=== PATIENT | female | born 1965 | race American Indian/Alaskan Native ===

== ENCOUNTER 2016-11-21 08:58 | Emergency (ER) | payer SELFPAY ==
[2016-11-21 10:05] LABS: Basophils % (Auto) 0.8 % (0.0-1.8); Hematocrit 36.4 % (30.3-42.9); Mean Corpuscular HGB Conc 36 % (30-34); Mean Corpuscular Hemoglobin 29 pg (28-32); Mean Corpuscular Volume 80 fl (79-97); Platelet Count 227 K/mm3 (140-440); Red Blood Count 4.55 M/mm3 (3.65-5.03); Red Cell Distribution Width 13.1 % (13.2-15.2); White Blood Count 4.3 K/mm3 (4.5-11.0)
[2016-11-21 10:14] LABS: Anion Gap 16 mmol/L; Blood Urea Nitrogen 12 mg/dL (7-17); Calcium 8.7 mg/dL (8.4-10.2); Carbon Dioxide 29 mmol/L (22-30); Chloride 95.6 mmol/L (98-107); Glucose 221 mg/dL (65-100); Lipase 17 units/L (13-60); Potassium 3.2 mmol/L (3.6-5.0); Sodium 137 mmol/L (137-145)
[2016-11-21] MEDS ORDERED: NACL 0.9% 1000 ML 1,000 ML IV ONE (16:42)
[2016-11-21] MEDS ORDERED: ZOFRAN IV ONE (16:42)
[2016-11-21] MEDS ORDERED: K-DUR PO ONE (16:42)
[2016-11-21] MEDS ORDERED: REGLAN IV ONE (16:42)
[2016-11-21] MEDS ORDERED: KCL 10MEQ/100ML 10 MEQ/100 ML BAG IV ONE (16:42)
[2016-11-21] MEDS ORDERED: BENADRYL IV ONE (16:42)
[2016-11-21] MEDS ORDERED: DILAUDID IV ONE (16:44)
--- NOTE | 2016-11-21 17:04 | Emergency Department Report ---
ED N/V/D HPI - General Chief complaint: Nausea/Vomiting/Diarrhea Stated complaint: CHEST PAIN/LOOSE STOOL/VOMITING Time Seen by Provider: 11/21/16 16:21 Source: patient Mode of arrival: Ambulatory Limitations: No Limitations - History of Present Illness Initial comments: 51-year-old female with a past medical history of insulin dependent diabetes, gastroparesis, GERD, and previous cholecystectomy presents to the hospital complaints of abdominal pain, nausea, vomiting, and diarrhea. Patient states she has chronic diarrhea and intermittent vomiting approximately one episode every one to 2 days. For the past 4 days patient has been vomiting 6-7 times a day and has continued diarrhea. She complains of intermittent cramping epigastric abdominal pain without aggravating or alleviating factors. Patient has had multiple similar bouts in the past secondary to gastroparesis and this feels similar. She just took the last dose of her recently prescribed medications from her September ER visit and reports that she no longer has any more hydrocodone or Reglan. She also has a history of chronic hypokalemia and reports she is chest discomfort and cramps when her potassium is low. - Related Data Home Medications Medication Instructions Recorded Confirmed Last Taken Insulin NPH/Regular [NovoLIN 70/30] 15 unit SUB-Q BID 10/14/15 03/26/16 19:30 Previous Rx's Medication Instructions Recorded Last Taken Type HYDROcodone/APAP 7.5-325 [[place] 1 each PO Q8HR PRN #10 tablet 05/08/16 Unknown Rx 7.5-325 mg TAB] Ciprofloxacin HCl [Ciprofloxacin 500 mg PO BID #20 tablet 06/07/16 Unknown Rx TAB] traMADol [Ultram 50 MG tab] 50 mg PO Q4HR PRN #20 tablet 06/07/16 Unknown Rx HYDROcodone/APAP 5-325 [[place] 1 each PO Q6HR PRN #20 tablet 11/21/16 Unknown Rx 5-325 mg TAB] Metoclopramide [Reglan TAB] 10 mg PO ACHS PRN #30 tablet 11/21/16 Unknown Rx Omeprazole Magnesium [PriLOSEC Otc] 20 mg PO QDAY #30 tablet. 11/21/16 Unknown Rx Ondansetron [Zofran Odt] 4 mg PO Q8HR PRN #20 tab.rapdis 11/21/16 Unknown Rx Potassium Chloride [K-Dur] 20 meq PO BID #10 tab 11/21/16 Unknown Rx Allergies Allergy/AdvReac Type Severity Reaction Status Date / Time aspirin AdvReac Vomiting Verified 10/14/15 13:42 ED Review of Systems ROS: Stated complaint: CHEST PAIN/LOOSE STOOL/VOMITING Other details as noted in HPI Comment: All other systems reviewed and negative Other: Constitutional: No fevers chills Eyes: No eye pain visual changes ENT: No ear pain or throat pain Neck: Denies pain Respiratory: Denies cough wheezing shortness of breath Cardiovascular: Denies palpitations, syncope GI: As per HPI : Denies dysuria, urinary frequency, or urgency Musculoskeletal: Denies back pain Skin: Denies rash, lesions, erythema Neurologic: Denies headache, numbness, weakness Psychiatric: Denies suicidal ideation, hallucinations ED Past Medical Hx - Past Medical History Previous Medical History?: Yes Hx Hypertension: (pt denies) Hx Heart Attack/AMI: No Hx Diabetes: Yes Hx GERD: Yes Hx Kidney Stones: No Additional medical history: NEUROPATHY, fibroids. CATARACT - Surgical History Past Surgical History?: Yes Hx Cholecystectomy: Yes Additional Surgical History: left fallopian tube removed at age 19 - Social History Smoking Status: Former Smoker Substance Use Type: Prescribed - Medications Home Medications: Home Medications Medication Instructions Recorded Confirmed Last Taken Type Insulin NPH/Regular [NovoLIN 70/30] 15 unit SUB-Q BID 10/14/15 03/26/16 19:30 History HYDROcodone/APAP 7.5-325 [[place] 1 each PO Q8HR PRN #10 tablet 05/08/16 Unknown Rx 7.5-325 mg TAB] Ciprofloxacin HCl [Ciprofloxacin 500 mg PO BID #20 tablet 06/07/16 Unknown Rx TAB] traMADol [Ultram 50 MG tab] 50 mg PO Q4HR PRN #20 tablet 06/07/16 Unknown Rx HYDROcodone/APAP 5-325 [[place] 1 each PO Q6HR PRN #20 tablet 11/21/16 Unknown Rx 5-325 mg TAB] Metoclopramide [Reglan TAB] 10 mg PO ACHS PRN #30 tablet 11/21/16 Unknown Rx Omeprazole Magnesium [PriLOSEC Otc] 20 mg PO QDAY #30 tablet 11/21/16 Unknown Rx Ondansetron [Zofran Odt] 4 mg PO Q8HR PRN #20 tab.rapdis 11/21/16 Unknown Rx Potassium Chloride [K-Dur] 20 meq PO BID #10 tab 11/21/16 Unknown Rx ED Physical Exam - General Limitations: No Limitations - Other Other exam information: General: No limitations, patient is alert in no acute distress Head exam: Atraumatic, normocephalic Eyes exam: Normal appearance, nonicteric sclerae ENT: Moist mucous membrane, normal oropharynx Neck exam: Normal inspection, full range of motion, no meningismus nontender Respiratory exam: Clear to auscultation bilateral, no wheezes, rales, crackles Cardiovascular: Normal rate and rhythm, normal heart sounds Abdomen: Soft, nondistended, mild epigastric tenderness, with normal bowel sounds, no rebound, or guarding Extremity: Full range of motion normal inspection no deformity Back: Normal Inspection, full range of motion, no tenderness Neurologic: Alert, oriented x3, cranial nerves intact, no motor or sensory deficit Psychiatric: normal affect, normal mood Skin: Warm, dry, intact ED Course Vital Signs 11/21/16 11/21/16 11/21/16 09:18 16:35 16:36 Temperature 98.9 F Pulse Rate 84 81 Respiratory 18 16 16 Rate Blood Pressure 101/54 Blood Pressure 110/72 [Right] O2 Sat by Pulse 100 100 100 Oximetry - Reevaluation(s) Reevaluation #1: 11/21/16 19:17 pt feels better, tolerating po ED Medical Decision Making - Lab Data Result diagrams: 11/21/16 09:40 11/21/16 09:40 Lab Results 11/21/16 11/21/16 11/21/16 Range/Units 09:40 09:40 13:07 WBC 4.3 L (4.5-11.0) K/mm3 RBC 4.55 (3.65-5.03) M/mm3 Hgb 13.0 (10.1-14.3) gm/dl Hct 36.4 (30.3-42.9) % MCV 80 (79-97) fl MCH 29 (28-32) pg MCHC 36 H (30-34) % RDW 13.1 L (13.2-15.2) % Plt Count 227 (140-440) K/mm3 Lymph % (Auto) 43.0 H (13.4-35.0) % [place] % (Auto) 7.5 H (0.0-7.3) % Eos % (Auto) 1.0 (0.0-4.3) % Baso % (Auto) 0.8 (0.0-1.8) % Lymph # 1.8 (1.2-5.4) K/mm3 [place] # 0.3 (0.0-0.8) K/mm3 Eos # 0.0 (0.0-0.4) K/mm3 Baso # 0.0 (0.0-0.1) K/mm3 Seg Neutrophils % 47.7 (40.0-70.0) % Seg Neutrophils # 2.0 (1.8-7.7) K/mm3 Sodium 137 (137-145) mmol/L Potassium 3.2 L (3.6-5.0) mmol/L Chloride 95.6 L (98-107) mmol/L Carbon Dioxide 29 (22-30) mmol/L Anion Gap 16 mmol/L BUN 12 (7-17) mg/dL Creatinine 0.6 L (0.7-1.2) mg/dL Estimated GFR > 60 ml/min BUN/Creatinine Ratio 20.00 % Glucose 221 H (65-100) mg/dL POC Glucose (70-105) Calcium 8.7 (8.4-10.2) mg/dL Magnesium (1.7-2.3) mg/dL Total Bilirubin (0.1-1.2) mg/dL Direct Bilirubin (0-0.2) mg/dL Indirect Bilirubin mg/dL AST (5-40) units/L ALT (7-56) units/L Alkaline Phosphatase (35-129) units/L Troponin T < 0.010 < 0.010 (0.00-0.029) ng/mL Total Protein (6.3-8.2) g/dL Albumin (3.9-5) g/dL Albumin/Globulin Ratio % Lipase 17 (13-60) units/L 11/21/16 11/21/16 11/21/16 Range/Units 17:00 17:00 17:45 WBC (4.5-11.0) K/mm3 RBC (3.65-5.03) M/mm3 Hgb (10.1-14.3) gm/dl Hct (30.3-42.9) % MCV (79-97) fl MCH (28-32) pg MCHC (30-34) % RDW (13.2-15.2) % Plt Count (140-440) K/mm3 Lymph % (Auto) (13.4-35.0) % [place] % (Auto) (0.0-7.3) % Eos % (Auto) (0.0-4.3) % Baso % (Auto) (0.0-1.8) % Lymph # (1.2-5.4) K/mm3 [place] # (0.0-0.8) K/mm3 Eos # (0.0-0.4) K/mm3 Baso # (0.0-0.1) K/mm3 Seg Neutrophils % (40.0-70.0) % Seg Neutrophils # (1.8-7.7) K/mm3 Sodium (137-145) mmol/L Potassium (3.6-5.0) mmol/L Chloride (98-107) mmol/L Carbon Dioxide (22-30) mmol/L Anion Gap mmol/L BUN (7-17) mg/dL Creatinine (0.7-1.2) mg/dL Estimated GFR ml/min BUN/Creatinine Ratio % Glucose (65-100) mg/dL POC Glucose 175 H (70-105) Calcium (8.4-10.2) mg/dL Magnesium 1.9 (1.7-2.3) mg/dL Total Bilirubin 0.4 (0.1-1.2) mg/dL Direct Bilirubin < 0.2 (0-0.2) mg/dL Indirect Bilirubin 0.2 mg/dL AST 20 (5-40) units/L ALT 21 (7-56) units/L Alkaline Phosphatase 62 (35-129) units/L Troponin T < 0.010 (0.00-0.029) ng/mL Total Protein 6.8 (6.3-8.2) g/dL Albumin 4.0 (3.9-5) g/dL Albumin/Globulin Ratio 1.4 % Lipase (13-60) units/L - Medical Decision Making Medication ordered. Benadryl, Reglan, Dilaudid, Zofran, normal saline, by mouth and IV potassium. Sx improved ED treatment. Barrett be prescribed for discharge for gastroparesis symptoms as well as potassium supplementation. - Differential Diagnosis gastroparesis, GERD, gastroenteritis, hypokalemia, dehydration, UTI, DKA Critical Care Time: No Critical care attestation.: If time is entered above; I have spent that time in minutes in the direct care of this critically ill patient, excluding procedure time. ED Disposition Clinical Impression: Diabetic gastroparesis, GERD (gastroesophageal reflux disease), Hypokalemia Disposition: DISCHARGED TO HOME OR SELFCARE Is pt being admited?: No Does the pt Need Aspirin: No Condition: Stable Instructions: Diabetes Mellitus Type 2 in Adults (ED), Acute Nausea and Vomiting (ED) Additional Instructions: Take the medication as prescribed. Follow-up with the doctor or clinic provided. Return if symptoms worsen. Prescriptions: HYDROcodone/APAP 5-325 [[place] 5-325 mg TAB] 1 each PO Q6HR PRN #20 tablet PRN Reason: Pain Metoclopramide [Reglan TAB] 10 mg PO ACHS PRN #30 tablet PRN Reason: nausea or vomiting Omeprazole Magnesium [PriLOSEC Otc] 20 mg PO QDAY #30 tablet. Ondansetron [Zofran Odt] 4 mg PO Q8HR PRN #20 tab.rapdis PRN Reason: Nausea And Vomiting Potassium Chloride [K-Dur] 20 meq PO BID #10 tab Referrals: PRIMARY CARE, [Primary Care Provider] - 3-5 Days IGNACIA ESTRADA MD [Staff Physician] - 3-5 Days [facility] [Provider Group] - 3-5 Days JACK RILEY MD [Staff Physician] - 3-5 Days Time of Disposition: 19:22
[2016-11-21 17:35] LABS: Alanine Aminotransferase 21 units/L (7-56); Albumin/Globulin Ratio 1.4 %; Alkaline Phosphatase 62 units/L (35-129); Bilirubin,Total 0.4 mg/dL (0.1-1.2); Magnesium 1.9 mg/dL (1.7-2.3); Total Protein 6.8 g/dL (6.3-8.2)
[2016-11-21 17:46] LABS: Bilirubin,Direct < 0.2 mg/dL (0-0.2); Bilirubin,Indirect 0.2 mg/dL
[2016-11-21 22:00] VITALS: BP 135/78
== END 2016-11-21 21:50 | disposition home or self-care (01) ==
LOC: ED 08:58
DX: E11.43 Type 2 diabetes mellitus with diabetic autonomic (poly)neuropathy (principal); K31.84 Gastroparesis; K21.9 Gastro-esophageal reflux disease without esophagitis; E87.6 Hypokalemia; G62.9 Polyneuropathy, unspecified; Z79.4 Long term (current) use of insulin; Z87.891 Personal history of nicotine dependence; Z90.49 Acquired absence of other specified parts of digestive tract; Z88.5 Allergy status to narcotic agent
CPT/HCPCS: 36415; 80048; 80074; 82962; 83690; 83735; 84484; 85025; 93005; 93010; 96365; 96375; 99284; J1170; J1200; J2405; J2765; J3480; J7030; J1815

== ENCOUNTER 2016-12-26 15:09 | Emergency (ER) | payer SELFPAY ==
[2016-12-26 16:28] LABS: Basophils % (Auto) 0.7 % (0.0-1.8); Eosinophils % (Auto) 1.1 % (0.0-4.3); Hematocrit 34.1 % (30.3-42.9); Hemoglobin 12.3 gm/dl (10.1-14.3); Mean Corpuscular HGB Conc 36 % (30-34); Mean Corpuscular Hemoglobin 29 pg (28-32); Mean Corpuscular Volume 79 fl (79-97); Platelet Count 237 K/mm3 (140-440); Red Cell Distribution Width 13.1 % (13.2-15.2); White Blood Count 3.9 K/mm3 (4.5-11.0)
[2016-12-26 16:44] LABS: Anion Gap 15 mmol/L; BUN/Creatinine Ratio 16.66; Blood Urea Nitrogen 10 mg/dL (7-17); Calcium 8.5 mg/dL (8.4-10.2); Carbon Dioxide 33 mmol/L (22-30); Chloride 93.7 mmol/L (98-107); Glucose 216 mg/dL (65-100); Sodium 139 mmol/L (137-145)
[2016-12-26 16:57] LABS: Potassium 2.6 mmol/L (3.6-5.0)
[2016-12-26] MEDS ORDERED: ZOFRAN IV ONE (20:52)
[2016-12-26] MEDS ORDERED: DILAUDID IV ONE (20:52)
[2016-12-26] MEDS ORDERED: NACL 0.9% 1000 ML 1,000 ML IV ONE (20:54)
--- NOTE | 2016-12-26 20:54 | Emergency Department Report ---
ED General Adult HPI - General Chief complaint: Back Pain/Injury Stated complaint: BACK PAIN/UPPER/LOWER SIDE PAIN/VOMITING Time Seen by Provider: 12/26/16 20:30 Source: patient, RN notes reviewed, old records reviewed Mode of arrival: Ambulatory Limitations: No Limitations - History of Present Illness Initial comments: This is a 51-year-old female. She is previously unknown to me. She gets her medical care at this facility and a [facility]. Past medical history includes hypertension, diabetes, GERD/reflux, neuropathy, fibroids and hypertension. Patient had a history of cholecystectomy as Hospital distant past. She also has a history of gastroparesis. The patient presents to the ER with abdominal pain that radiates to the back. It is epigastric, right upper quadrant radiates to the back. It is sharp and achy. Associated with a few episodes of nausea and vomiting, nonbloody and nonbilious. The patient denies lower abdominal pain. She denies chest pain and shortness of breath. There is no leg pain. There is no leg swelling. There is GREATER than 4 hours. No recent hospital admissions. No hematemesis. No bright red blood per rectum. Of note, reviewed patient's old medical records demonstrates that she is presented multiple times in the past for similar symptoms. -: Gradual Location: abdomen Radiation: back Severity scale (0 -10): 10 Quality: aching, sharp Improves with: medication, rest Worsens with: movement Associated Symptoms: loss of appetite, malaise. denies: confusion, chest pain, cough - Related Data Home Medications Medication Instructions Recorded Confirmed Last Taken Insulin NPH/Regular [NovoLIN 70/30] 15 unit SUB-Q BID 10/14/15 12/26/16 19:30 Previous Rx's Medication Instructions Recorded Last Taken Type Dicyclomine [Bentyl] 10 mg PO QID PRN #20 capsule 12/26/16 Unknown Rx Famotidine [Pepcid] 20 mg PO QDAY #30 tablet 12/26/16 Unknown Rx Metoclopramide [Reglan] 10 mg PO QID PRN #30 tablet 12/26/16 Unknown Rx Potassium Chloride [Klor-Con] 20 meq PO BID #20 packet 12/26/16 Unknown Rx Allergies Allergy/AdvReac Type Severity Reaction Status Date / Time aspirin AdvReac Vomiting Verified 10/14/15 13:42 ED Review of Systems ROS: Stated complaint: BACK PAIN/UPPER/LOWER SIDE PAIN/VOMITING Other details as noted in HPI Constitutional: malaise. denies: fever Eyes: denies: vision change ENT: denies: epistaxis Respiratory: denies: cough Cardiovascular: denies: chest pain Genitourinary: as per HPI. denies: dysuria Musculoskeletal: myalgia Skin: denies: lesions Neurological: weakness Psychiatric: anxiety ED Past Medical Hx - Past Medical History Hx Hypertension: (pt denies) Hx Heart Attack/AMI: No Hx Diabetes: Yes Hx GERD: Yes Hx Kidney Stones: No Additional medical history: NEUROPATHY, fibroids. CATARACT - Surgical History Hx Cholecystectomy: Yes Additional Surgical History: left fallopian tube removed at age 19 - Social History Smoking Status: Former Smoker Substance Use Type: Prescribed - Medications Home Medications: Home Medications Medication Instructions Recorded Confirmed Last Taken Type Insulin NPH/Regular [NovoLIN 70/30] 15 unit SUB-Q BID 10/14/15 12/26/16 19:30 History Dicyclomine [Bentyl] 10 mg PO QID PRN #20 capsule 12/26/16 Unknown Rx Famotidine [Pepcid] 20 mg PO QDAY #30 tablet 12/26/16 Unknown Rx Metoclopramide [Reglan] 10 mg PO QID PRN #30 tablet 12/26/16 Unknown Rx Potassium Chloride [Klor-Con] 20 meq PO BID #20 packet 12/26/16 Unknown Rx ED Physical Exam - General Limitations: No Limitations General appearance: alert, in distress - Head Head exam: Present: atraumatic, normocephalic - Eye Eye exam: Present: normal appearance - ENT ENT exam: Present: normal exam, normal orophraynx, mucous membranes moist, normal external ear exam - Neck Neck exam: Present: normal inspection, full ROM. Absent: tenderness, meningismus - Respiratory Respiratory exam: Present: normal lung sounds bilaterally. Absent: respiratory distress, wheezes, rales, rhonchi, stridor, chest wall tenderness, accessory muscle use, decreased breath sounds, prolonged expiratory - Cardiovascular Cardiovascular Exam: Present: regular rate, normal rhythm, normal heart sounds. Absent: bradycardia, tachycardia, irregular rhythm, systolic murmur, diastolic murmur, rubs, gallop - GI/Abdominal GI/Abdominal exam: Present: soft, tenderness, normal bowel sounds, other (ears epigastric and right upper quadrant tenderness. There is no rebound, guarding or peritoneal signs.). Absent: distended, guarding, rebound, rigid, pulsatile mass - Extremities Exam Extremities exam: Present: normal inspection, full ROM, normal capillary refill. Absent: pedal edema, joint swelling, calf tenderness - Back Exam Back exam: Present: normal inspection, full ROM, CVA tenderness (R) - Neurological Exam Neurological exam: Present: alert, oriented X3, normal gait, other (Extraocular movements intact. Tongue midline. No facial droop. Facial sensation intact to light touch in the V1, V2, V3 distribution bilaterally. 5 and 5 strength in 4 extremities.. Sensation is intact to light touch in 4 extremities.). Absent : motor sensory deficit - Psychiatric Psychiatric exam: Present: anxious - Skin Skin exam: Present: warm, dry, intact, normal color. Absent: rash ED Course Vital Signs 12/26/16 12/26/16 12/26/16 15:58 20:40 20:49 Temperature 98.5 F 98.6 F Pulse Rate 74 68 69 Respiratory 16 15 18 Rate Blood Pressure 128/74 Blood Pressure 164/92 [Left] O2 Sat by Pulse 100 100 Oximetry 12/26/16 12/26/16 12/26/16 21:01 21:31 22:00 Temperature Pulse Rate 65 Respiratory 25 H 18 Rate Blood Pressure 164/92 164/92 Blood Pressure [Left] O2 Sat by Pulse 99 98 Oximetry 12/26/16 12/26/16 12/26/16 22:01 22:30 22:32 Temperature Pulse Rate Respiratory 18 18 Rate Blood Pressure 164/92 Blood Pressure [Left] O2 Sat by Pulse 100 98 Oximetry 12/26/16 12/26/16 12/26/16 22:49 23:00 23:30 Temperature Pulse Rate 61 58 L Respiratory 36 H 34 H 15 Rate Blood Pressure 134/55 137/78 122/58 Blood Pressure [Left] O2 Sat by Pulse 97 100 99 Oximetry 12/27/16 12/27/16 12/27/16 00:01 00:30 01:01 Temperature Pulse Rate 56 L Respiratory 18 26 H 17 Rate Blood Pressure 133/82 146/71 146/83 Blood Pressure [Left] O2 Sat by Pulse Oximetry 12/27/16 12/27/16 12/27/16 01:30 01:59 02:00 Temperature Pulse Rate Respiratory 17 18 14 Rate Blood Pressure 131/72 156/61 Blood Pressure [Left] O2 Sat by Pulse Oximetry 12/27/16 02:31 Temperature Pulse Rate Respiratory 14 Rate Blood Pressure 157/55 Blood Pressure [Left] O2 Sat by Pulse Oximetry - Reevaluation(s) Reevaluation #1: 12/26/16 21:52 differential diagnosis: GERD, gastritis, renal colic, urinary tract infection, pyelonephritis, gastroparesis Assessment and plan: 51-year-old female status post cholecystectomy a few months ago, with epigastric and right upper quadrant pain that radiates to the back. Symptoms; on for the past 4-5 days. She is afebrile with reassuring vital signs. I think acute coronary syndrome is very unlikely, symptoms have been present for days, as per the [employer] clinical policy, myocardial infarction may be excluded with 1 set of troponins if symptoms have been present for greater than 8 hours. There are no pulmonary embolus or DVT risk factors, the patient is low risk by well's criteria, she is not tachycardic and she is not hypoxic. X-ray the chest is clear, and the patient has had multiple similar prior presentations. We will treat her symptomatically. A CT scan of the abdomen and pelvis is pending. We will reassess after the CT scan has resulted. Reevaluation #2: 12/26/16 23:39 The patient reports that she feels improved. She is tolerating ice chips. CT scan demonstrates no acute findings, incidental findings are noted. Patient does not have diarrhea aND i DONT BELIEVE SHE requires antibiotic therapy at this time. She is able to tolerate ice chips. She will be discharged with nonnarcotic pain medication, nausea medication, potassium supplementation, instructions to follow up with outpatient gastroenterology. The Options are reviewed. ED Medical Decision Making - Lab Data Result diagrams: 12/26/16 16:10 12/26/16 16:06 Vital Signs 12/26/16 12/26/16 15:58 20:49 Temperature 98.5 F 98.6 F Pulse Rate 74 69 Respiratory 16 18 Rate Blood Pressure 128/74 Blood Pressure 164/92 [Left] O2 Sat by Pulse 100 100 Oximetry Vital Signs 12/26/16 12/26/16 15:58 20:49 Temperature 98.5 F 98.6 F Pulse Rate 74 69 Respiratory 16 18 Rate Blood Pressure 128/74 Blood Pressure 164/92 [Left] O2 Sat by Pulse 100 100 Oximetry Lab Results 12/26/16 12/26/16 12/26/16 Range/Units 16:00 16:06 16:10 WBC 3.9 L (4.5-11.0) K/mm3 RBC 4.30 (3.65-5.03) M/mm3 Hgb 12.3 (10.1-14.3) gm/dl Hct 34.1 (30.3-42.9) % MCV 79 (79-97) fl MCH 29 (28-32) pg MCHC 36 H (30-34) % RDW 13.1 L (13.2-15.2) % Plt Count 237 (140-440) K/mm3 Lymph % (Auto) 48.8 H (13.4-35.0) % [place] % (Auto) 8.8 H (0.0-7.3) % Eos % (Auto) 1.1 (0.0-4.3) % Baso % (Auto) 0.7 (0.0-1.8) % Lymph # 1.9 (1.2-5.4) K/mm3 [place] # 0.3 (0.0-0.8) K/mm3 Eos # 0.0 (0.0-0.4) K/mm3 Baso # 0.0 (0.0-0.1) K/mm3 Seg Neutrophils % 40.6 (40.0-70.0) % Seg Neutrophils # 1.6 L (1.8-7.7) K/mm3 Sodium 139 (137-145) mmol/L Potassium 2.6 L* (3.6-5.0) mmol/L Chloride 93.7 L (98-107) mmol/L Carbon Dioxide 33 H (22-30) mmol/L Anion Gap 15 mmol/L BUN 10 (7-17) mg/dL Creatinine 0.6 L (0.7-1.2) mg/dL Estimated GFR > 60 ml/min BUN/Creatinine Ratio 16.66 % Glucose 216 H (65-100) mg/dL POC Glucose 234 H (70-105) Lactic Acid (0.7-2.0) mmol/L Calcium 8.5 (8.4-10.2) mg/dL Urine Color (Yellow) Urine Turbidity (Clear) Urine pH (5.0-7.0) Ur Specific Pyrites (1.003-1.030) Urine Protein (Negative) mg/dL Urine Glucose (UA) (Negative) mg/dL Urine Ketones (Negative) mg/dL Urine Blood (Negative) Urine Nitrite (Negative) Urine Bilirubin (Negative) Urine Urobilinogen (<2.0) mg/dL Ur Leukocyte Esterase (Negative) Urine WBC (Auto) (0.0-6.0) /HPF Urine RBC (Auto) (0.0-6.0) /HPF Urine Mucus /HPF 12/26/16 12/26/16 Range/Units 21:04 21:25 WBC (4.5-11.0) K/mm3 RBC (3.65-5.03) M/mm3 Hgb (10.1-14.3) gm/dl Hct (30.3-42.9) % MCV (79-97) fl MCH (28-32) pg MCHC (30-34) % RDW (13.2-15.2) % Plt Count (140-440) K/mm3 Lymph % (Auto) (13.4-35.0) % [place] % (Auto) (0.0-7.3) % Eos % (Auto) (0.0-4.3) % Baso % (Auto) (0.0-1.8) % Lymph # (1.2-5.4) K/mm3 [place] # (0.0-0.8) K/mm3 Eos # (0.0-0.4) K/mm3 Baso # (0.0-0.1) K/mm3 Seg Neutrophils % (40.0-70.0) % Seg Neutrophils # (1.8-7.7) K/mm3 Sodium (137-145) mmol/L Potassium (3.6-5.0) mmol/L Chloride (98-107) mmol/L Carbon Dioxide (22-30) mmol/L Anion Gap mmol/L BUN (7-17) mg/dL Creatinine (0.7-1.2) mg/dL Estimated GFR ml/min BUN/Creatinine Ratio % Glucose (65-100) mg/dL POC Glucose (70-105) Lactic Acid 1.00 (0.7-2.0) mmol/L Calcium (8.4-10.2) mg/dL Urine Color Yellow (Yellow) Urine Turbidity Clear (Clear) Urine pH 7.0 (5.0-7.0) Ur Specific Pyrites 1.029 (1.003-1.030) Urine Protein <15 mg/dl (Negative) mg/dL Urine Glucose (UA) >=500 (Negative) mg/dL Urine Ketones Tr (Negative) mg/dL Urine Blood Neg (Negative) Urine Nitrite Neg (Negative) Urine Bilirubin Neg (Negative) Urine Urobilinogen 4.0 (<2.0) mg/dL Ur Leukocyte Esterase Neg (Negative) Urine WBC (Auto) 1.0 (0.0-6.0) /HPF Urine RBC (Auto) 2.0 (0.0-6.0) /HPF Urine Mucus Few /HPF - EKG Data 12/26/16 21:54 Normal sinus, 71 bpm, normal intervals, normal axis, nonspecific ST abnormality , not morphologically consistent with STEMI, unchanged from prior EKG from 11/21. Possible borderline atrial enlargement. - Radiology Data Radiology results: report reviewed, image reviewed X-ray the chest is negative for acute disease. CT scan of the abdomen and pelvis with IV contrast: Status post appendectomy. Nonobstructing right renal stone. Large and small bowel normal in caliber. Fluid noted in the ascending colon. Appendix is normal. No pneumoperitoneum or adenopathy identified. The aorta is normal in course and caliber. Fibroid uterus is noted. Fluid within ascending colon may be infectious and/or inflammatory. No colonic wall thickening or focal fluid collection to suggest abscess is noted. Critical care attestation.: If time is entered above; I have spent that time in minutes in the direct care of this critically ill patient, excluding procedure time. ED Disposition Clinical Impression: Nausea & vomiting, Abdominal pain Disposition: DISCHARGED TO HOME OR SELFCARE Is pt being admited?: No Does the pt Need Aspirin: No Condition: Good Instructions: Acute Nausea and Vomiting (ED), Abdominal Pain (ED) Additional Instructions: Take the pain medication, nausea medication, potassium supplementation as directed. Follow up with a primary care physician or offset assistant press operator within the next 7-[address] Forrest is a local primary care doctor. Dr. Browning is a local gastroenterology specialist. If you have not had a colonoscopy within the past 10 years, I recommend that he follow-up with a offset assistant press operator for evaluation for possible colonoscopy. Not following up in a timely fashion for consultation with a offset assistant press operator for possible colonoscopy may result in an undiagnosed cancer/tumor/malignancy. Return to the ER right away with new pain, worsened pain, migration of pain, fevers or chills, intractable nausea or vomiting, inability to tolerate liquid feeds. Prescriptions: Dicyclomine [Bentyl] 10 mg PO QID PRN #20 capsule PRN Reason: Pain Famotidine [Pepcid] 20 mg PO QDAY #30 tablet Metoclopramide [Reglan] 10 mg PO QID PRN #30 tablet PRN Reason: Nausea Potassium Chloride [Klor-Con] 20 meq PO BID #20 packet Referrals: PRIMARY CARE, [Primary Care Provider] - 3-5 Days THOMAS FORREST MD [Staff Physician] - 3-5 Days DHAVLA BROWNING MD [Staff Physician] - 3-5 Days Forms: Work/School Release Form(ED)
[2016-12-26 21:43] LABS: Bilirubin,Urine NEG (Negative); Blood,Urine NEG (Negative); Ketones,Urine TR mg/dL (Negative); Leukocyte Esterase,Urine NEG (Negative); Mucus,Urine FEW /HPF; Nitrite,Urine NEG (Negative); Protein,Urine <15 mg/dL mg/dL (Negative)
[2016-12-26 21:59] LABS: Alanine Aminotransferase 19 units/L (7-56); Albumin 4.1 g/dL (3.9-5); Albumin/Globulin Ratio 1.4 %; Alkaline Phosphatase 68 units/L (35-129); Bilirubin,Direct 0.3 mg/dL (0-0.2); Bilirubin,Indirect 0.5 mg/dL; Lipase 12 units/L (13-60); Total Protein 7.1 g/dL (6.3-8.2)
[2016-12-26] MEDS: KCL 10MEQ/100ML 10 MEQ/100 ML BAG IV SCH ×2 (22:15→23:56)
--- NOTE | 2016-12-26 23:29 | Cat Scan Report ---
FINAL REPORT EXAM: CT ABDOMEN PELVIS WO/W CON HISTORY: ruq pain rad to bacvk TECHNIQUE: CT images are acquired through the Abdomen and Pelvis without contrast and subsequently arterial and delayed venous phases following intravenous administration 100 cc Omnipaque 300 contrast. Transaxial, coronal and sagittal reformations are provided. PRIORS: 10/06/2016 FINDINGS: Partially visualized intrathoracic contents are unremarkable. Cholecystectomy. Unchanged benign left adrenal lipid rich adenoma. Right adrenal gland is unremarkable. The liver, pancreas and spleen are unremarkable. There is a 1 millimeter nonobstructing right renal stone. Kidneys show no worrisome lesions, hydronephrosis, or other calculi. Urinary bladder is without intraluminal stone. Small and large bowel are normal in caliber. There is fluid within the ascending colon. Appendix is normal in caliber. No pneumoperitoneum or lymphadenopathy identified. Aorta is normal in course and caliber. No atherosclerosis or mesenteric arterial stenosis. Anteverted fibroid uterus is unchanged. There is free fluid in the pelvis. Superficial soft tissues are unremarkable. No acute or aggressive appearing skeletal findings. IMPRESSION: Fluid within the ascending colon may be infectious or inflammatory. No colonic wall thickening or focal fluid collection to suggest abscess formation. No other potentially acute intra-abdominal process identified. Fibroid uterus. Small volume of free fluid in the pelvis. Nonobstructive 1 millimeter right renal stone.
[2016-12-27] MEDS: KCL 10MEQ/100ML 10 MEQ/100 ML BAG IV SCH ×2 (00:57→01:58)
[2016-12-27] MEDS ORDERED: ULTRAM PO ONE (01:03)
[2016-12-27] MEDS ORDERED: NACL 0.9% 250ML 250 ML ONE (01:49)
[2016-12-27] MEDS ORDERED: NACL 0.9% 250ML 250 ML IV ONE (01:55)
[2016-12-27 02:58] VITALS: BP 157/55
--- NOTE | 2016-12-27 08:09 | XRay Report ---
AP CHEST : 12/26/16 21:07 CLINICAL: Right lower chest pain. COMPARISON:11/11/15 FINDINGS: Normal heart and pulmonary vessels. The lungs are normally expanded and clear. Degenerative change in the thoracic spine. IMPRESSION: No acute cardiopulmonary process.No rib fracture. No pneumonia.
== END 2016-12-27 03:29 | disposition home or self-care (01) ==
LOC: ED 15:09
DX: R10.13 Epigastric pain (principal); R10.11 Right upper quadrant pain; R11.2 Nausea with vomiting, unspecified; E11.9 Type 2 diabetes mellitus without complications; K21.9 Gastro-esophageal reflux disease without esophagitis; G62.9 Polyneuropathy, unspecified; Z87.891 Personal history of nicotine dependence; Z79.4 Long term (current) use of insulin; Z88.6 Allergy status to analgesic agent
CPT/HCPCS: 36415; 51701; 71010; 74178; 80048; 80074; 81001; 82140; 82962; 83690; 83735; 84484; 85025; 93005; 93010; 96361; 96365; 96375; 99285; J1170; J2405; J3480; J7030; J7050; Q9967

== ENCOUNTER 2017-02-24 13:02 | Emergency (ER) | payer SELFPAY ==
[2017-02-24 13:41] LABS: Basophils % (Auto) 0.4 % (0.0-1.8); Eosinophils % (Auto) 0.1 % (0.0-4.3); Hematocrit 37.1 % (30.3-42.9); Hemoglobin 13.1 gm/dl (10.1-14.3); Mean Corpuscular HGB Conc 35 % (30-34); Mean Corpuscular Hemoglobin 29 pg (28-32); Mean Corpuscular Volume 82 fl (79-97); Platelet Count 239 K/mm3 (140-440); Red Blood Count 4.53 M/mm3 (3.65-5.03); Red Cell Distribution Width 12.9 % (13.2-15.2); White Blood Count 4.3 K/mm3 (4.5-11.0)
[2017-02-24 13:55] LABS: Anion Gap 16 mmol/L; Blood Urea Nitrogen 16 mg/dL (7-17); Carbon Dioxide 35 mmol/L (22-30); Glucose 244 mg/dL (65-100); Sodium 136 mmol/L (137-145)
[2017-02-24] MEDS ORDERED: NACL 0.9% 1000 ML 1,000 ML IV ONE (13:55)
[2017-02-24] MEDS ORDERED: ZOFRAN IV ONE (13:55)
[2017-02-24 14:05] LABS: Potassium 2.6 mmol/L (3.6-5.0)
[2017-02-24] MEDS ORDERED: TYLENOL PO ONE (14:30)
[2017-02-24] MEDS ORDERED: K-DUR PO ONE (14:31)
[2017-02-24 14:37] LABS: Albumin/Globulin Ratio 1.3 %; Bilirubin,Direct 0.3 mg/dL (0-0.2); Bilirubin,Indirect 0.8 mg/dL; Bilirubin,Total 1.1 mg/dL (0.1-1.2); Total Protein 7.2 g/dL (6.3-8.2)
--- NOTE | 2017-02-24 14:38 | XRay Report ---
AP CHEST: HISTORY: chest pain AP view of the chest demonstrates a normal mediastinal and cardiac contour with clear lungs and normal bony and soft tissue structures. IMPRESSION: No acute cardiopulmonary process.
[2017-02-24 14:50] LABS: Bacteria,Urine 1+ /HPF (Negative); Bilirubin,Urine NEG (Negative); Blood,Urine NEG (Negative); Ketones,Urine 20 mg/dL (Negative); Leukocyte Esterase,Urine MOD (Negative); Mucus,Urine 3+ /HPF; Nitrite,Urine NEG (Negative)
--- NOTE | 2017-02-24 16:23 | Emergency Department Report ---
HPI - General Chief Complaint: Chest Pain Time Seen by Provider: 02/24/17 13:56 - HPI HPI: The patient is a 51-year-old female with a history of diabetes and gastroparesis , and chronic chest pain, who presents for evaluation of abdominal pain and nausea. The patient reports epigastric abdominal pain for the past 5 days, constant since onset, 10/10 in severity, crampy in quality, radiating into the midsternal chest, and associated with nausea, and multiple episodes of nonbilious, nonbloody emesis. The patient denies fever, chills, night sweats, cough, dyspnea, hemoptysis, syncope, blood in the stool, dark tarry stool, dysuria, hematuria, flank pain, genital discharge, inability to pass flatus. ED Past Medical Hx - Past Medical History Hx Hypertension: (pt denies) Hx Heart Attack/AMI: No Hx Diabetes: Yes Hx GERD: Yes Hx Kidney Stones: No Additional medical history: NEUROPATHY, fibroids. CATARACT - Surgical History Hx Cholecystectomy: Yes Additional Surgical History: left fallopian tube removed at age 19 - Social History Smoking Status: Never Smoker Substance Use Type: None - Medications Home Medications: Home Medications Medication Instructions Recorded Confirmed Last Taken Type Insulin NPH/Regular [NovoLIN 70/30] 15 unit SUB-Q BID 10/14/15 12/26/16 19:30 History Dicyclomine [Bentyl] 10 mg PO QID PRN #20 capsule 12/26/16 Unknown Rx Famotidine [Pepcid] 20 mg PO QDAY #30 tablet 12/26/16 Unknown Rx Metoclopramide [Reglan] 10 mg PO QID PRN #30 tablet 12/26/16 Unknown Rx Ondansetron [Zofran TAB] 4 mg PO Q8HR PRN #15 tablet 02/24/17 Unknown Rx Potassium Chloride [Klor-Con] 20 meq PO BID #20 packet 02/24/17 Unknown Rx traMADol [Ultram 50 MG tab] 50 mg PO Q6HR PRN #14 tablet 02/24/17 Unknown Rx ED Review of Systems ROS: Stated complaint: CHEST PAIN/ ABD PAIN Other details as noted in HPI Constitutional: denies: fever ENT: denies: throat or neck pain Respiratory: denies: cough, shortness of breath Cardiovascular: reports chest pain Endocrine: denies unexplained weight loss or gain Gastrointestinal: reports abdominal pain, nausea Genitourinary: denies: dysuria Musculoskeletal: denies: leg swelling Skin: denies: rash Neurological: denies: headache Hematological/Lymphatic: denies: easy bleeding or easy bruising Psych: denies sadness or hopelessness Physical Exam - Physical Exam Vital Signs: Vital Signs 02/24/17 13:13 Temperature 98.5 F Pulse Rate 81 Respiratory 18 Rate Blood Pressure 156/98 Physical Exam: General: well-nourished, well-developed, no acute distress Head: Normocephalic, atraumatic Eyes: normal sclera ENT: Mucous membranes are pale and dry Neck: No neck stiffness, no cervical adenopathy Respiratory: Breath sounds equal bilaterally, no wheezing, rales, or rhonchi Cardio: S1 and S2 present, no murmurs, rubs, gallops, capillary refill is delayed Abdomen: Normoactive bowel sounds, soft abdomen, epigastric tenderness to palpation present, no rigidity, no guarding or rebound tenderness Chest WALL/Back: No tenderness to palpation of the chest wall, no CVA tenderness with percussion Musc: No pitting edema Skin: No rash Neuro: no facial drooping, normal speech Psych: Normal affect ED Course Vital Signs 02/24/17 13:13 Temperature 98.5 F Pulse Rate 81 Respiratory 18 Rate Blood Pressure 156/98 ED Medical Decision Making - Lab Data Result diagrams: 02/24/17 13:23 02/24/17 13:23 - Medical Decision Making The patient was seen and examined by myself. The patient is placed on a cardiac specialist and continuous pulse ox. On initial evaluation, the patient was found to be in no distress. Evaluation orders are placed. IV access is established and the patient is given 1 L normal saline fluid bolus for treatment of dehydration and Zofran for nausea, and a tablet of Tylenol for pain Lab results revealed elevated glucose level of > 200, and low potassium level of 2.6. Otherwise labs were non-concerning including WBC, hemoglobin, hematocrit , electrolytes, renal function, LFTs, lipase. The patient is given K Dur for treatment of low potassium level. The patient signed out AGAINST MEDICAL ADVICE stating secondary to not receiving narcotic IV pain medication. Critical care attestation.: If time is entered above; I have spent that time in minutes in the direct care of this critically ill patient, excluding procedure time. ED Disposition Clinical Impression: Dehydration, Acute hypokalemia, Acute generalized abdominal pain, Acute hyperglycemia, Nausea and vomiting in adult patient Disposition: DC-07 LEFT AGAINST MED ADVICE Is pt being admited?: No Does the pt Need Aspirin: No Condition: Stable Instructions: Dehydration (ED), Acute Abdominal Pain (ED), Diabetic Hyperglycemia (ED) Prescriptions: Ondansetron [Zofran TAB] 4 mg PO Q8HR PRN #15 tablet PRN Reason: Nausea Potassium Chloride [Klor-Con] 20 meq PO BID #20 packet traMADol [Ultram 50 MG tab] 50 mg PO Q6HR PRN #14 tablet PRN Reason: Pain Referrals: PRIMARY CARE, [Primary Care Provider] - 3-5 Days Time of Disposition: 16:22
[2017-02-24 16:32] VITALS: BP 122/78
== END 2017-02-24 16:31 | disposition left against medical advice (07) ==
LOC: ED 13:02
DX: E86.0 Dehydration (principal); E11.65 Type 2 diabetes mellitus with hyperglycemia; E87.6 Hypokalemia; R10.84 Generalized abdominal pain; R11.2 Nausea with vomiting, unspecified; K21.9 Gastro-esophageal reflux disease without esophagitis; Z79.4 Long term (current) use of insulin
CPT/HCPCS: 36415; 71010; 80048; 80074; 81001; 82140; 82805; 82962; 83690; 84484; 84703; 85025; 93005; 93010; 96361; 96374; 96375; 99285; J2405; J7030; J1815

== ENCOUNTER 2017-03-01 19:52 | Emergency (ER) | payer SELFPAY ==
[2017-03-01 20:53] VITALS: BP 140/86
[2017-03-01 21:21] LABS: Basophils % (Auto) 0.7 % (0.0-1.8); Eosinophils % (Auto) 1.3 % (0.0-4.3); Hemoglobin 13.2 gm/dl (10.1-14.3); Mean Corpuscular HGB Conc 36 % (30-34); Mean Corpuscular Hemoglobin 29 pg (28-32); Mean Corpuscular Volume 81 fl (79-97); Platelet Count 257 K/mm3 (140-440); Red Blood Count 4.59 M/mm3 (3.65-5.03); Red Cell Distribution Width 12.7 % (13.2-15.2); White Blood Count 4.8 K/mm3 (4.5-11.0)
[2017-03-01 21:45] LABS: Alanine Aminotransferase 20 units/L (7-56); Albumin 4.5 g/dL (3.9-5); Albumin/Globulin Ratio 1.5 %; Alkaline Phosphatase 81 units/L (35-129); Anion Gap 9 mmol/L; Blood Urea Nitrogen 7 mg/dL (7-17); Calcium 9.3 mg/dL (8.4-10.2); Carbon Dioxide 39 mmol/L (22-30); Chloride 92.6 mmol/L (98-107); Glucose 200 mg/dL (65-100); Lipase 24 units/L (13-60); Sodium 138 mmol/L (137-145); Total Protein 7.6 g/dL (6.3-8.2)
[2017-03-01 21:53] LABS: Potassium 2.5 mmol/L (3.6-5.0)
[2017-03-01] MEDS ORDERED: HALDOL IM ONE (22:34)
[2017-03-01] MEDS ORDERED: DILAUDID IV ONE (22:34)
[2017-03-01] MEDS ORDERED: ZOFRAN IV ONE (22:34)
[2017-03-01] MEDS ORDERED: BENTYL IM ONE (22:34)
[2017-03-01] MEDS ORDERED: NACL 0.9% 1000 ML 1,000 ML IV ONE (22:34)
[2017-03-01] MEDS ORDERED: PEPCID IV ONE (22:34)
[2017-03-01] MEDS ORDERED: K-DUR PO ONE (22:35)
[2017-03-01] MEDS ORDERED: REGLAN IV ONE (22:36)
--- NOTE | 2017-03-01 22:36 | Emergency Department Report ---
ED General Adult HPI - General Chief complaint: Abdominal Pain Stated complaint: ABDOMINAL PAIN Time Seen by Provider: 03/01/17 22:22 Source: patient, RN notes reviewed, old records reviewed Mode of arrival: Ambulatory Limitations: No Limitations - History of Present Illness Initial comments: This is a 51-year-old female. She is previously known to me. Past medical history includes hypertension, diabetes, GERD/reflux, neuropathy, fibroids, hypertension, gastroparesis, history of cholecystectomy. The patient presents to the ER with her typical constellation of epigastric abdominal pain that radiates to the back, which is associated with nonbloody, nonbilious episodes of emesis. The abdominal pain is sharp and achy, associated with multiple episodes of nausea and vomiting. There is no leg pain. There is no leg swelling. Patient has been seen by myself in the past for similar symptoms. The pain typically decreases with hydromorphone. Patient also describes nonspecific dizziness and generalized weakness. She denies irritative and obstructive urinary symptoms. -: Gradual Location: abdomen Radiation: back Severity scale (0 -10): 10 Quality: aching Consistency: constant Improves with: medication Worsens with: eating Associated Symptoms: malaise, nausea/vomiting, weakness - Related Data Home Medications Medication Instructions Recorded Confirmed Last Taken Insulin NPH/Regular [NovoLIN 70/30] 15 unit SUB-Q BID 10/14/15 12/26/16 19:30 Previous Rx's Medication Instructions Recorded Last Taken Type Famotidine [Pepcid] 20 mg PO QDAY #30 tablet 12/26/16 Unknown Rx Ondansetron [Zofran TAB] 4 mg PO Q8HR PRN #15 tablet 02/24/17 Unknown Rx traMADol [Ultram 50 MG tab] 50 mg PO Q6HR PRN #14 tablet 02/24/17 Unknown Rx Dicyclomine [Bentyl] 10 mg PO QID PRN #20 capsule 03/02/17 Unknown Rx Metoclopramide [Reglan TAB] 10 mg PO QID PRN #30 tablet 03/02/17 Unknown Rx Potassium Chloride [Klor-Con] 20 meq PO BID #20 packet 03/02/17 Unknown Rx Sucralfate [Carafate] 1 gm PO ONCE PRN #120 oral.liqd 03/02/17 Unknown Rx Allergies Allergy/AdvReac Type Severity Reaction Status Date / Time aspirin AdvReac Vomiting Verified 02/24/17 13:13 ED Review of Systems ROS: Stated complaint: ABDOMINAL PAIN Other details as noted in HPI Constitutional: malaise. denies: fever Eyes: denies: vision change ENT: denies: epistaxis Respiratory: denies: cough Cardiovascular: denies: chest pain Gastrointestinal: abdominal pain, nausea, vomiting Genitourinary: denies: urgency, dysuria Musculoskeletal: back pain Skin: denies: rash, lesions Neurological: weakness Psychiatric: anxiety ED Past Medical Hx - Past Medical History Previous Medical History?: Yes Hx Hypertension: (pt denies) Hx Heart Attack/AMI: No Hx Diabetes: Yes Hx GERD: Yes Hx Kidney Stones: No Additional medical history: NEUROPATHY, fibroids. CATARACT - Surgical History Past Surgical History?: Yes Hx Cholecystectomy: Yes Additional Surgical History: left fallopian tube removed at age 19 - Social History Smoking Status: Former Smoker Substance Use Type: None - Medications Home Medications: Home Medications Medication Instructions Recorded Confirmed Last Taken Type Insulin NPH/Regular [NovoLIN 70/30] 15 unit SUB-Q BID 10/14/15 12/26/16 19:30 History Famotidine [Pepcid] 20 mg PO QDAY #30 tablet 12/26/16 Unknown Rx Ondansetron [Zofran TAB] 4 mg PO Q8HR PRN #15 tablet 02/24/17 Unknown Rx traMADol [Ultram 50 MG tab] 50 mg PO Q6HR PRN #14 tablet 02/24/17 Unknown Rx Dicyclomine [Bentyl] 10 mg PO QID PRN #20 capsule 03/02/17 Unknown Rx Metoclopramide [Reglan TAB] 10 mg PO QID PRN #30 tablet 03/02/17 Unknown Rx Potassium Chloride [Klor-Con] 20 meq PO BID #20 packet 03/02/17 Unknown Rx Sucralfate [Carafate] 1 gm PO ONCE PRN #120 oral.liqd 03/02/17 Unknown Rx ED Physical Exam - General Limitations: No Limitations General appearance: alert, anxious - Head Head exam: Present: atraumatic, normocephalic - Eye Eye exam: Present: normal appearance, EOMI. Absent: nystagmus - ENT ENT exam: Present: normal exam, normal orophraynx, mucous membranes moist, normal external ear exam - Neck Neck exam: Present: normal inspection, full ROM. Absent: tenderness, meningismus - Respiratory Respiratory exam: Present: normal lung sounds bilaterally. Absent: respiratory distress, wheezes, rales, rhonchi, stridor, chest wall tenderness, accessory muscle use, decreased breath sounds, prolonged expiratory - Cardiovascular Cardiovascular Exam: Present: regular rate, normal rhythm, normal heart sounds. Absent: bradycardia, tachycardia, irregular rhythm, systolic murmur, diastolic murmur, rubs, gallop - GI/Abdominal GI/Abdominal exam: Present: soft, normal bowel sounds. Absent: distended, tenderness, guarding, rebound, rigid, pulsatile mass - Extremities Exam Extremities exam: Present: normal inspection, full ROM, normal capillary refill. Absent: tenderness, pedal edema, joint swelling, calf tenderness - Back Exam Back exam: Present: normal inspection, full ROM. Absent: tenderness, CVA tenderness (R), CVA tenderness (L), muscle spasm, paraspinal tenderness, vertebral tenderness - Neurological Exam Neurological exam: Present: alert, oriented X3, normal gait, other (Extraocular movements intact. Tongue midline. No facial droop. Facial sensation intact to light touch in the V1, V2, V3 distribution bilaterally. 5 and 5 strength in 4 extremities.. Sensation is intact to light touch in 4 extremities.). Absent : motor sensory deficit - Psychiatric Psychiatric exam: Present: normal affect, normal mood - Skin Skin exam: Present: warm, dry, intact, normal color. Absent: rash ED Course Vital Signs 03/01/17 03/01/17 03/01/17 20:52 20:56 22:57 Temperature 98.7 F 98.7 F Pulse Rate 73 73 Respiratory 18 20 18 Rate Blood Pressure 140/86 Blood Pressure 140/86 [Right] O2 Sat by Pulse 99 99 Oximetry 03/01/17 22:58 Temperature Pulse Rate Respiratory 18 Rate Blood Pressure Blood Pressure [Right] O2 Sat by Pulse 100 Oximetry - Reevaluation(s) Reevaluation #1: 03/02/17 01:19 Patient feels improved. Tolerating liquid feeds. Tachycardia has resolved, urinalysis is appreciated, the patient does not endorse any irritative or obstructive urinary symptoms, will not discharge her with antibiotics. The patient will be discharged with nausea medication, pain medication, and potassium supplementation. ED Medical Decision Making - Lab Data Result diagrams: 03/01/17 21:10 03/01/17 21:10 Vital Signs 03/01/17 03/01/17 03/01/17 20:52 20:56 22:57 Temperature 98.7 F 98.7 F Pulse Rate 73 73 Respiratory 18 20 18 Rate Blood Pressure 140/86 Blood Pressure 140/86 [Right] O2 Sat by Pulse 99 99 Oximetry 03/01/17 22:58 Temperature Pulse Rate Respiratory 18 Rate Blood Pressure Blood Pressure [Right] O2 Sat by Pulse 100 Oximetry Lab Results 03/01/17 03/01/17 03/01/17 Range/Units 21:10 21:10 21:10 WBC 4.8 (4.5-11.0) K/mm3 RBC 4.59 (3.65-5.03) M/mm3 Hgb 13.2 (10.1-14.3) gm/dl Hct 37.0 (30.3-42.9) % MCV 81 (79-97) fl MCH 29 (28-32) pg MCHC 36 H (30-34) % RDW 12.7 L (13.2-15.2) % Plt Count 257 (140-440) K/mm3 Lymph % (Auto) 53.3 H (13.4-35.0) % Divide % (Auto) 6.1 (0.0-7.3) % Eos % (Auto) 1.3 (0.0-4.3) % Baso % (Auto) 0.7 (0.0-1.8) % Lymph # 2.5 (1.2-5.4) K/mm3 Divide # 0.3 (0.0-0.8) K/mm3 Eos # 0.1 (0.0-0.4) K/mm3 Baso # 0.0 (0.0-0.1) K/mm3 Seg Neutrophils % 38.6 L (40.0-70.0) % Seg Neutrophils # 1.8 (1.8-7.7) K/mm3 Sodium 138 (137-145) mmol/L Potassium 2.5 L* (3.6-5.0) mmol/L Chloride 92.6 L (98-107) mmol/L Carbon Dioxide 39 H (22-30) mmol/L Anion Gap 9 mmol/L BUN 7 (7-17) mg/dL Creatinine 0.5 L (0.7-1.2) mg/dL Estimated GFR > 60 ml/min BUN/Creatinine Ratio 14.00 % Glucose 200 H (65-100) mg/dL Calcium 9.3 (8.4-10.2) mg/dL Total Bilirubin 0.50 (0.1-1.2) mg/dL AST 20 (5-40) units/L ALT 20 (7-56) units/L Alkaline Phosphatase 81 (35-129) units/L Total Protein 7.6 (6.3-8.2) g/dL Albumin 4.5 (3.9-5) g/dL Albumin/Globulin Ratio 1.5 % Lipase 24 (13-60) units/L HCG, Qual Negative (Negative) - EKG Data -: EKG Interpreted by Me EKG shows normal: sinus rhythm, axis, QRS complexes, ST-T waves - Medical Decision Making Differential diagnosis: Dehydration, electrolyte derangement, urinary tract infection, gastroparesis exacerbation Assessment and plan: 51-year-old female with probable typical gastroparesis exacerbation. She is markedly improved with IV fluids, hydromorphone, and nausea medication. She walks the steady gait. She is able to tolerate liquid feeds. Her potassium was repleted. She will be discharged with pain medication , nausea medication, potassium supplementation, instructions to follow up with outpatient gastroenterology. Critical care attestation.: If time is entered above; I have spent that time in minutes in the direct care of this critically ill patient, excluding procedure time. ED Disposition Clinical Impression: Nausea and vomiting in adult patient, Acute hypokalemia Disposition: - TO HOME OR SELFCARE Is pt being admited?: No Does the pt Need Aspirin: No Condition: Stable Instructions: Abdominal Pain (ED) Additional Instructions: Take medications as directed. Follow up with a primary care doctor or river captain within the next 2 weeks. Return to the ER right away with new pain, worsened pain, migration of pain, fevers or chills, intractable nausea or vomiting, confusion, inability to tolerate liquid feeds, new, worsening or different symptoms. Prescriptions: Dicyclomine [Bentyl] 10 mg PO QID PRN #20 capsule PRN Reason: Pain Metoclopramide [Reglan TAB] 10 mg PO QID PRN #30 tablet PRN Reason: Nausea Potassium Chloride [Klor-Con] 20 meq PO BID #20 packet Sucralfate [Carafate] 1 gm PO ONCE PRN #120 oral.liqd PRN Reason: Pain Referrals: PRIMARY CARE, [Primary Care Provider] - 3-5 Days DHAVAL AGUILAR MD [Staff Physician] - 3-5 Days
[2017-03-01] MEDS ORDERED: KCL 10MEQ/100ML 10 MEQ/100 ML BAG IV SCH (23:00)
[2017-03-02] MEDS ORDERED: CARAFATE PO ONE
[2017-03-02 01:13] LABS: Bacteria,Urine 1+ /HPF (Negative); Bilirubin,Urine NEG (Negative); Blood,Urine NEG (Negative); Ketones,Urine TR mg/dL (Negative); Leukocyte Esterase,Urine SM (Negative); Mucus,Urine 3+ /HPF; Nitrite,Urine NEG (Negative)
== END 2017-03-02 03:00 | disposition home or self-care (01) ==
LOC: ED 19:52
DX: R11.2 Nausea with vomiting, unspecified (principal); E87.6 Hypokalemia; E11.9 Type 2 diabetes mellitus without complications; K21.9 Gastro-esophageal reflux disease without esophagitis; Z87.891 Personal history of nicotine dependence; Z79.4 Long term (current) use of insulin; H26.9 Unspecified cataract; Z88.6 Allergy status to analgesic agent
CPT/HCPCS: 36415; 51701; 80053; 81001; 83690; 83735; 84703; 85025; 93005; 93010; 96361; 96372; 96374; 96375; 99284; J0500; J1170; J1630; J3480; J7030

== ENCOUNTER 2017-03-24 10:34 | Emergency (ER) | payer SELFPAY ==
[2017-03-24 11:20] LABS: Basophils % (Auto) 0.4 % (0.0-1.8); Eosinophils % (Auto) 1.4 % (0.0-4.3); Hematocrit 34.6 % (30.3-42.9); Hemoglobin 12.1 gm/dl (10.1-14.3); Mean Corpuscular HGB Conc 35 % (30-34); Mean Corpuscular Hemoglobin 29 pg (28-32); Mean Corpuscular Volume 83 fl (79-97); Platelet Count 192 K/mm3 (140-440); Red Blood Count 4.19 M/mm3 (3.65-5.03); Red Cell Distribution Width 12.8 % (13.2-15.2); White Blood Count 3.2 K/mm3 (4.5-11.0)
[2017-03-24 11:38] LABS: Alanine Aminotransferase 19 units/L (7-56); Albumin/Globulin Ratio 1.1 %; Alkaline Phosphatase 84 units/L (35-129); Anion Gap 18 mmol/L; Blood Urea Nitrogen 9 mg/dL (7-17); Calcium 8.7 mg/dL (8.4-10.2); Carbon Dioxide 31 mmol/L (22-30); Chloride 95.3 mmol/L (98-107); Glucose 251 mg/dL (65-100); Lipase 11 units/L (13-60); Potassium 3.1 mmol/L (3.6-5.0); Sodium 141 mmol/L (137-145); Total Protein 7.5 g/dL (6.3-8.2)
[2017-03-24 11:44] LABS: Bacteria,Urine 1+ /HPF (Negative); Bilirubin,Urine NEG (Negative); Blood,Urine NEG (Negative); Ketones,Urine TR mg/dL (Negative); Leukocyte Esterase,Urine TR (Negative); Mucus,Urine FEW /HPF; Nitrite,Urine NEG (Negative)
[2017-03-24] MEDS ORDERED: ZOFRAN IV ONE (17:28)
[2017-03-24] MEDS ORDERED: MORPHINE IV ONE (17:28)
[2017-03-24] MEDS ORDERED: K-DUR PO ONE (17:28)
[2017-03-24] MEDS ORDERED: NACL 0.9% 1000 ML 1,000 ML IV ONE (17:29)
[2017-03-24 20:59] VITALS: BP 166/80
--- NOTE | 2017-03-24 22:23 | Emergency Department Report ---
HPI - General Chief Complaint: Abdominal Pain Time Seen by Provider: 03/24/17 16:51 - HPI HPI: The patient is a 51-year-old female presents for evaluation of abdominal pain. The patient is well-known to this emergency Department and myself, and has been evaluated by myself multiple times. The patient presents with recurrence of upper abdominal pain and nausea vomiting. The patient complains of 1 day of constant, 10/10 in severity, cramping upper and mid abdominal pain, exacerbated with vomiting. ED Past Medical Hx - Past Medical History Previous Medical History?: Yes Hx Hypertension: (pt denies) Hx Heart Attack/AMI: No Hx Diabetes: Yes Hx GERD: Yes Hx Kidney Stones: No Additional medical history: NEUROPATHY, fibroids. CATARACT - Surgical History Past Surgical History?: Yes Hx Cholecystectomy: Yes Additional Surgical History: left fallopian tube removed at age 19 - Social History Smoking Status: Never Smoker Substance Use Type: None - Medications Home Medications: Home Medications Medication Instructions Recorded Confirmed Last Taken Type Insulin NPH/Regular [NovoLIN 70/30] 15 unit SUB-Q BID 10/14/15 12/26/16 19:30 History Famotidine [Pepcid] 20 mg PO QDAY #30 tablet 12/26/16 Unknown Rx Ondansetron [Zofran TAB] 4 mg PO Q8HR PRN #15 tablet 02/24/17 Unknown Rx traMADol [Ultram 50 MG tab] 50 mg PO Q6HR PRN #14 tablet 02/24/17 Unknown Rx Dicyclomine [Bentyl] 10 mg PO QID PRN #20 capsule 03/02/17 Unknown Rx Metoclopramide [Reglan TAB] 10 mg PO QID PRN #30 tablet 03/02/17 Unknown Rx Potassium Chloride [Klor-Con] 20 meq PO BID #20 packet 03/02/17 Unknown Rx Sucralfate [Carafate] 1 gm PO ONCE PRN #120 oral.liqd 03/02/17 Unknown Rx Ondansetron [Zofran TAB] 4 mg PO Q8HR PRN #15 tablet 03/24/17 Unknown Rx traMADol [Ultram 50 MG tab] 50 mg PO Q6HR PRN #10 tablet 03/24/17 Unknown Rx ED Review of Systems ROS: Stated complaint: BACK PAIN/N/V Other details as noted in HPI Constitutional: denies: fever ENT: denies: throat or neck pain Respiratory: denies: cough, shortness of breath Cardiovascular: denies: chest pain Endocrine: denies unexplained weight loss or gain Gastrointestinal: reports abdominal pain, nausea Genitourinary: denies: dysuria Musculoskeletal: denies: leg swelling Skin: denies: rash Neurological: denies: headache Hematological/Lymphatic: denies: easy bleeding or easy bruising Psych: denies sadness or hopelessness Physical Exam - Physical Exam Vital Signs: Vital Signs 03/24/17 03/24/17 03/24/17 11:03 16:06 20:59 Temperature 99.1 F Pulse Rate 82 88 74 Respiratory 18 16 16 Rate Blood Pressure 166/82 Blood Pressure 164/87 166/80 [Left] O2 Sat by Pulse 100 99 95 Oximetry Physical Exam: General: well-nourished, well-developed, no acute distress Head: Normocephalic, atraumatic Eyes: normal sclera ENT: Mucous membranes are pale and dry Neck: trachea midline, neck supple, No neck stiffness, no cervical adenopathy Respiratory: Breath sounds equal bilaterally, no wheezing, rales, or rhonchi Cardio: S1 and S2 present, no murmurs, rubs, gallops, capillary refill is delayed Abdomen: Normoactive bowel sounds, soft abdomen, epigastric and periumbilical tenderness to palpation present, no rigidity, no guarding or rebound tenderness Chest WALL/Back: No tenderness to palpation of the chest wall, no CVA tenderness with percussion Musc: No pitting edema Skin: No rash Neuro: no facial drooping, normal speech Psych: Normal affect ED Course Vital Signs 03/24/17 03/24/17 03/24/17 11:03 16:06 20:59 Temperature 99.1 F Pulse Rate 82 88 74 Respiratory 18 16 16 Rate Blood Pressure 166/82 Blood Pressure 164/87 166/80 [Left] O2 Sat by Pulse 100 99 95 Oximetry ED Medical Decision Making - Lab Data Result diagrams: 03/24/17 11:09 03/24/17 11:09 - Medical Decision Making The patient was seen and examined by myself. The patient is placed on a vehicle monitor technician and continuous pulse ox. On initial evaluation, the patient was found to be in no distress. Evaluation orders are placed. IV access is established and the patient is given 1 L normal saline fluid bolus for treatment of dehydration, and Zofran for nausea, and IV analgesic for pain. Lab results revealed elevated glucose level 251, mild hypokalemia, and otherwise labs were non-concerning including WBC, hemoglobin, hematocrit, renal function, LFTs, lipase. The patient indicated for treatment of hypokalemia. The patient was reevaluated and reported that their symptoms were improved. A repeat Accu- Chek was performed and blood sugar is found to decrease below concerning range. The patient is stable for discharge with outpatient follow-up. The patient is given follow-up and return instructions. The patient expressed understanding and agreed with the plan. The patient is discharged in stable condition. Critical care attestation.: If time is entered above; I have spent that time in minutes in the direct care of this critically ill patient, excluding procedure time. ED Disposition Clinical Impression: Dehydration, Acute hyperglycemia, Abdominal pain, acute, periumbilical, Hypokalemia Disposition: DC- TO HOME OR SELFCARE Is pt being admited?: No Does the pt Need Aspirin: No Condition: Stable Instructions: Abdominal Pain (ED), Acute Nausea and Vomiting (ED), Diabetic Hyperglycemia (ED) Prescriptions: Ondansetron [Zofran TAB] 4 mg PO Q8HR PRN #15 tablet PRN Reason: Nausea traMADol [Ultram 50 MG tab] 50 mg PO Q6HR PRN #10 tablet PRN Reason: Pain Referrals: PRIMARY CARE, [Primary Care Provider] - 3-5 Days Time of Disposition: 22:26
== END 2017-03-24 22:55 | disposition home or self-care (01) ==
LOC: ED 10:34
DX: E11.65 Type 2 diabetes mellitus with hyperglycemia (principal); E86.0 Dehydration; R10.33 Periumbilical pain; E87.6 Hypokalemia
CPT/HCPCS: 36415; 80053; 81001; 82962; 83690; 85025; 96361; 96374; 96375; 99284; J2270; J2405; J7030

== ENCOUNTER 2017-04-30 23:36 | Emergency (ER) | payer OTHER ==
[2017-05-01 01:30] LABS: Alanine Aminotransferase 15 units/L (7-56); Albumin 4.2 g/dL (3.9-5); Albumin/Globulin Ratio 1.2 %; Alkaline Phosphatase 79 units/L (35-129); Anion Gap 19 mmol/L; BUN/Creatinine Ratio 28.33; Blood Urea Nitrogen 17 mg/dL (7-17); Calcium 9.2 mg/dL (8.4-10.2); Carbon Dioxide 30 mmol/L (22-30); Chloride 91.7 mmol/L (98-107); Glucose 257 mg/dL (65-100); Lipase 14 units/L (13-60); Potassium 3.3 mmol/L (3.6-5.0); Sodium 137 mmol/L (137-145); Total Protein 7.6 g/dL (6.3-8.2)
[2017-05-01 02:17] LABS: Basophils % (Auto) 0.5 % (0.0-1.8); Eosinophils % (Auto) 0.1 % (0.0-4.3); Hematocrit 37.8 % (30.3-42.9); Hemoglobin 13.5 gm/dl (10.1-14.3); Mean Corpuscular HGB Conc 36 % (30-34); Mean Corpuscular Hemoglobin 29 pg (28-32); Mean Corpuscular Volume 81 fl (79-97); Platelet Count 262 K/mm3 (140-440); Red Blood Count 4.66 M/mm3 (3.65-5.03); Red Cell Distribution Width 12.8 % (13.2-15.2); White Blood Count 5.7 K/mm3 (4.5-11.0)
[2017-05-01 03:24] LABS: Bilirubin,Urine NEG (Negative); Blood,Urine NEG (Negative); Ketones,Urine 20 mg/dL (Negative); Leukocyte Esterase,Urine NEG (Negative); Mucus,Urine FEW /HPF; Nitrite,Urine NEG (Negative); WBC,Urine < 1.0 /HPF (0.0-6.0)
[2017-05-01] MEDS ORDERED: MORPHINE IV ONE (03:44)
[2017-05-01] MEDS ORDERED: ZOFRAN IV ONE (03:44)
[2017-05-01] MEDS ORDERED: NACL 0.9% 1000 ML 1,000 ML IV ONE (03:45)
--- NOTE | 2017-05-01 04:50 | Emergency Department Report ---
ED Abdominal Pain HPI - General Chief Complaint: Abdominal Pain Stated Complaint: ABD PAIN/BACK PAIN Time Seen by Provider: 05/01/17 02:37 Source: patient Mode of arrival: Stretcher Limitations: No Limitations - History of Present Illness Initial Comments: Patient is a 51-year-old female past medical history of diabetes and GERD who presents with abdominal pain and back pain. Patient states that she's been having abdominal pain to 10 out of 10 since Monday she states that she's been nauseous and vomiting and diarrhea. She states that she hasn't been able to keep much food down since Monday. The pain goes from her back and radiates to her stomach. She states that she since been going on and off for the last year. Patient is currently in no distress. Patient denies having any dysuria, fever or blood in stool. - Related Data Home Medications Medication Instructions Recorded Confirmed Last Taken Insulin NPH/Regular [NovoLIN 70/30] 15 unit SUB-Q BID 10/14/15 12/26/16 19:30 Previous Rx's Medication Instructions Recorded Last Taken Type Famotidine [Pepcid] 20 mg PO QDAY #30 tablet 12/26/16 Unknown Rx Ondansetron [Zofran TAB] 4 mg PO Q8HR PRN #15 tablet 02/24/17 Unknown Rx traMADol [Ultram 50 MG tab] 50 mg PO Q6HR PRN #14 tablet 02/24/17 Unknown Rx Dicyclomine [Bentyl] 10 mg PO QID PRN #20 capsule 03/02/17 Unknown Rx Metoclopramide [Reglan TAB] 10 mg PO QID PRN #30 tablet 03/02/17 Unknown Rx Potassium Chloride [Klor-Con] 20 meq PO BID #20 packet 03/02/17 Unknown Rx Sucralfate [Carafate] 1 gm PO ONCE PRN #120 oral.liqd 03/02/17 Unknown Rx Ondansetron [Zofran TAB] 4 mg PO Q8HR PRN #15 tablet 03/24/17 Unknown Rx traMADol [Ultram 50 MG tab] 50 mg PO Q6HR PRN #10 tablet 03/24/17 Unknown Rx Allergies Allergy/AdvReac Type Severity Reaction Status Date / Time aspirin AdvReac Vomiting Verified 03/24/17 11:03 ED Review of Systems ROS: Stated complaint: ABD PAIN/BACK PAIN Other details as noted in HPI Constitutional: denies: chills, fever Eyes: denies: eye pain, eye discharge, vision change ENT: denies: ear pain, throat pain Respiratory: denies: cough, shortness of breath, wheezing Cardiovascular: denies: chest pain, palpitations Endocrine: no symptoms reported Gastrointestinal: nausea, vomiting, diarrhea. denies: abdominal pain Genitourinary: denies: urgency, dysuria, discharge Musculoskeletal: back pain. denies: joint swelling, arthralgia Skin: denies: rash, lesions Neurological: denies: headache, weakness, paresthesias Psychiatric: denies: anxiety, depression Hematological/Lymphatic: denies: easy bleeding, easy bruising ED Past Medical Hx - Past Medical History Previous Medical History?: Yes Hx Hypertension: (pt denies) Hx Heart Attack/AMI: No Hx Diabetes: Yes Hx GERD: Yes Hx Kidney Stones: No Additional medical history: NEUROPATHY, fibroids. CATARACT - Surgical History Past Surgical History?: Yes Hx Cholecystectomy: Yes Additional Surgical History: left fallopian tube removed at age 19 - Social History Smoking Status: Never Smoker - Medications Home Medications: Home Medications Medication Instructions Recorded Confirmed Last Taken Type Insulin NPH/Regular [NovoLIN 70/30] 15 unit SUB-Q BID 10/14/15 12/26/16 19:30 History Famotidine [Pepcid] 20 mg PO QDAY #30 tablet 12/26/16 Unknown Rx Ondansetron [Zofran TAB] 4 mg PO Q8HR PRN #15 tablet 02/24/17 Unknown Rx traMADol [Ultram 50 MG tab] 50 mg PO Q6HR PRN #14 tablet 02/24/17 Unknown Rx Dicyclomine [Bentyl] 10 mg PO QID PRN #20 capsule 03/02/17 Unknown Rx Metoclopramide [Reglan TAB] 10 mg PO QID PRN #30 tablet 03/02/17 Unknown Rx Potassium Chloride [Klor-Con] 20 meq PO BID #20 packet 03/02/17 Unknown Rx Sucralfate [Carafate] 1 gm PO ONCE PRN #120 oral.liqd 03/02/17 Unknown Rx Ondansetron [Zofran TAB] 4 mg PO Q8HR PRN #15 tablet 07/28/17 Unknown Rx traMADol [Ultram 50 MG tab] 50 mg PO Q6HR PRN #10 tablet 03/24/17 Unknown Rx ED Physical Exam - General Limitations: No Limitations General appearance: alert, in no apparent distress - Head Head exam: Present: atraumatic, normocephalic - Eye Eye exam: Present: normal appearance - ENT ENT exam: Present: mucous membranes moist - Neck Neck exam: Present: normal inspection - Respiratory Respiratory exam: Present: normal lung sounds bilaterally. Absent: respiratory distress - Cardiovascular Cardiovascular Exam: Present: regular rate, normal rhythm. Absent: systolic murmur, diastolic murmur, rubs, gallop - GI/Abdominal GI/Abdominal exam: Present: soft, normal bowel sounds - Extremities Exam Extremities exam: Present: normal inspection - Back Exam Back exam: Present: normal inspection - Neurological Exam Neurological exam: Present: alert, oriented X3 - Psychiatric Psychiatric exam: Present: normal affect, normal mood - Skin Skin exam: Present: warm, dry, intact, normal color. Absent: rash ED Course Vital Signs 05/01/17 00:46 Temperature 98.6 F Pulse Rate 89 Respiratory 18 Rate Blood Pressure 136/85 O2 Sat by Pulse 100 Oximetry - Reevaluation(s) Reevaluation #1: 05/01/17 04:50 Patient is resting comfortably in no distress I will send patient home. ED Medical Decision Making - Lab Data Result diagrams: 05/01/17 00:55 05/01/17 00:55 Lab Results 05/01/17 05/01/17 05/01/17 Range/Units 00:55 00:55 03:09 WBC 5.7 (4.5-11.0) K/mm3 RBC 4.66 (3.65-5.03) M/mm3 Hgb 13.5 (10.1-14.3) gm/dl Hct 37.8 (30.3-42.9) % MCV 81 (79-97) fl MCH 29 (28-32) pg MCHC 36 H (30-34) % RDW 12.8 L (13.2-15.2) % Plt Count 262 (140-440) K/mm3 Lymph % (Auto) 31.3 (13.4-35.0) % [place] % (Auto) 7.5 H (0.0-7.3) % Eos % (Auto) 0.1 (0.0-4.3) % Baso % (Auto) 0.5 (0.0-1.8) % Lymph # 1.8 (1.2-5.4) K/mm3 [place] # 0.4 (0.0-0.8) K/mm3 Eos # 0.0 (0.0-0.4) K/mm3 Baso # 0.0 (0.0-0.1) K/mm3 Seg Neutrophils % 60.6 (40.0-70.0) % Seg Neutrophils # 3.5 (1.8-7.7) K/mm3 Sodium 137 (137-145) mmol/L Potassium 3.3 L (3.6-5.0) mmol/L Chloride 91.7 L (98-107) mmol/L Carbon Dioxide 30 (22-30) mmol/L Anion Gap 19 mmol/L BUN 17 (7-17) mg/dL Creatinine 0.6 L (0.7-1.2) mg/dL Estimated GFR > 60 ml/min BUN/Creatinine Ratio 28.33 % Glucose 257 H (65-100) mg/dL Calcium 9.2 (8.4-10.2) mg/dL Total Bilirubin 1.10 (0.1-1.2) mg/dL AST 20 (5-40) units/L ALT 15 (7-56) units/L Alkaline Phosphatase 79 (35-129) units/L Total Protein 7.6 (6.3-8.2) g/dL Albumin 4.2 (3.9-5) g/dL Albumin/Globulin Ratio 1.2 % Lipase 14 (13-60) units/L Urine Color [place] (Yellow) Urine Turbidity Clear (Clear) Urine pH 5.0 (5.0-7.0) Ur Specific [place] 1.025 (1.003-1.030) Urine Protein 30 mg/dl (Negative) mg/dL Urine Glucose (UA) >=500 (Negative) mg/dL Urine Ketones 20 (Negative) mg/dL Urine Blood Neg (Negative) Urine Nitrite Neg (Negative) Urine Bilirubin Neg (Negative) Urine Urobilinogen 4.0 (<2.0) mg/dL Ur Leukocyte Esterase Neg (Negative) Urine WBC (Auto) < 1.0 (0.0-6.0) /HPF Urine RBC (Auto) 1.0 (0.0-6.0) /HPF U Epithel Cells (Auto) < 1.0 (0-13.0) /HPF Urine Mucus Few /HPF Urine HCG, Qual Negative (Negative) - Medical Decision Making Medical diagnosis: GERD Differential medical diagnosis: Gastroenteritis, pancreatitis, colitis, urinary tract infection I will get CBC, CMP, urinalysis IV analgesic pain medication Patient blood work and urinalysis are unremarkable also and patient home to follow up with her primary care provider. Discussed patient she agrees with plan. Critical care attestation.: If time is entered above; I have spent that time in minutes in the direct care of this critically ill patient, excluding procedure time. ED Disposition Clinical Impression: Back pain Qualifiers: Back pain location: low back pain Chronicity: chronic Back pain laterality: unspecified Sciatica presence: without sciatica Qualified Code(s): M54.5 - Low back pain; G89.29 - Other chronic pain Nausea & vomiting Qualifiers: Vomiting type: unspecified Vomiting Intractability: non-intractable Qualified Code(s): R11.2 - Nausea with vomiting, unspecified Disposition: DC-01 TO HOME OR SELFCARE Is pt being admited?: No Does the pt Need Aspirin: No Condition: Stable Instructions: Abdominal Pain (ED) Referrals: PRIMARY CARE, [Primary Care Provider] - 3-5 Days
[2017-05-01 07:01] VITALS: BP 118/74
== END 2017-05-01 07:00 | disposition home or self-care (01) ==
LOC: ED 23:36
DX: M54.5 Low back pain (principal); G89.29 Other chronic pain; R11.2 Nausea with vomiting, unspecified; E11.9 Type 2 diabetes mellitus without complications; K21.9 Gastro-esophageal reflux disease without esophagitis
CPT/HCPCS: 36415; 80053; 81001; 81025; 83690; 85025; 96361; 96374; 96375; 99284; J2270; J2405; J7030

== ENCOUNTER 2017-05-05 10:47 | Emergency (ER) | payer SELFPAY ==
[2017-05-05 11:15] LABS: Eosinophils % (Auto) 1.8 % (0.0-4.3); Hematocrit 36.4 % (30.3-42.9); Hemoglobin 12.9 gm/dl (10.1-14.3); Mean Corpuscular HGB Conc 35 % (30-34); Mean Corpuscular Hemoglobin 28 pg (28-32); Mean Corpuscular Volume 80 fl (79-97); Platelet Count 278 K/mm3 (140-440); Red Blood Count 4.54 M/mm3 (3.65-5.03); Red Cell Distribution Width 12.6 % (13.2-15.2); White Blood Count 4.2 K/mm3 (4.5-11.0)
[2017-05-05 11:39] LABS: Alanine Aminotransferase 14 units/L (7-56); Albumin 4.2 g/dL (3.9-5); Albumin/Globulin Ratio 1.3 %; Alkaline Phosphatase 72 units/L (35-129); Anion Gap 16 mmol/L; Blood Urea Nitrogen 8 mg/dL (7-17); Carbon Dioxide 31 mmol/L (22-30); Chloride 95.6 mmol/L (98-107); Glucose 98 mg/dL (65-100); Lipase 15 units/L (13-60); Sodium 140 mmol/L (137-145); Total Protein 7.4 g/dL (6.3-8.2)
[2017-05-05 15:38] VITALS: BP 141/78
[2017-05-05 16:07] LABS: Bacteria,Urine 3+ /HPF (Negative); Bilirubin,Urine NEG (Negative); Blood,Urine NEG (Negative); Ketones,Urine NEG (Negative); Leukocyte Esterase,Urine SM (Negative); Mucus,Urine 2+ /HPF; Nitrite,Urine NEG (Negative); Protein,Urine <15 mg/dL mg/dL (Negative); Urobilinogen,Urine < 2.0 mg/dL (<2.0)
[2017-05-05] MEDS ORDERED: ZOFRAN IM ONE (16:53)
--- NOTE | 2017-05-05 16:53 | Emergency Department Report ---
HPI - General Chief Complaint: Abdominal Pain Time Seen by Provider: 05/05/17 16:49 - HPI HPI: 51-year-old [place] female coming in is left flank and left back pain starting about a year ago. She states that her pain is accompanied by nausea, diarrhea but no vomiting, no urinary symptoms . Patient has not taking any medication at home for his symptoms. She denies any exacerbating factors. She denies any alleviating factors. She denies any recent travel, or unusual foods. She denies any sick contacts. MD Complaint: abdominal pain -: Gradual Location: Left flank Radiation: none Migration to: no migration Severity scale (0 -10): 4 Quality: sharp Improves With: nothing Associated Symptoms: nausea, diarrhea ED Past Medical Hx - Past Medical History Previous Medical History?: Yes Hx Hypertension: (pt denies) Hx Heart Attack/AMI: No Hx Diabetes: Yes Hx GERD: Yes Hx Kidney Stones: No Additional medical history: NEUROPATHY, fibroids. CATARACT - Surgical History Past Surgical History?: Yes Hx Cholecystectomy: Yes Additional Surgical History: left fallopian tube removed at age 19 - Social History Smoking Status: Never Smoker Substance Use Type: None - Medications Home Medications: Home Medications Medication Instructions Recorded Confirmed Last Taken Type Insulin NPH/Regular [NovoLIN 70/30] 15 unit SUB-Q BID 10/14/15 12/26/16 19:30 History Famotidine [Pepcid] 20 mg PO QDAY #30 tablet 12/26/16 Unknown Rx Ondansetron [Zofran TAB] 4 mg PO Q8HR PRN #15 tablet 02/24/17 Unknown Rx Dicyclomine [Bentyl] 10 mg PO QID PRN #20 capsule 03/02/17 Unknown Rx Metoclopramide [Reglan TAB] 10 mg PO QID PRN #30 tablet 03/02/17 Unknown Rx Potassium Chloride [Klor-Con] 20 meq PO BID #20 packet 03/02/17 Unknown Rx Sucralfate [Carafate] 1 gm PO ONCE PRN #120 oral.liqd 03/02/17 Unknown Rx Ondansetron [Zofran TAB] 4 mg PO Q8HR PRN #15 tablet 03/24/17 Unknown Rx traMADol [Ultram 50 MG tab] 50 mg PO Q6HR PRN #10 tablet 07/28/17 Unknown Rx traMADol [Ultram 50 MG tab] 50 mg PO Q6HR PRN #14 tablet 05/01/17 Unknown Rx ED Review of Systems ROS: Stated complaint: STOMACH PAIN Other details as noted in HPI Comment: All other systems reviewed and negative Gastrointestinal: as per HPI, abdominal pain, nausea Musculoskeletal: back pain Physical Exam - Physical Exam Vital Signs: Vital Signs 05/05/17 05/05/17 10:55 15:36 Temperature 98.4 F Pulse Rate 77 82 Respiratory 18 16 Rate Blood Pressure 154/104 Blood Pressure 141/78 [Left] O2 Sat by Pulse 100 99 Oximetry Physical Exam: Physical Exam: - General Limitations: No Limitations General appearance: alert, in no apparent distress, obese - Head Head exam: Present: atraumatic, normocephalic - Eye Eye exam: Present: normal appearance - ENT ENT exam: Present: mucous membranes moist - Neck Neck exam: Present: normal inspection - Respiratory Respiratory exam: Present: normal lung sounds bilaterally. Absent: respiratory distress - Cardiovascular Cardiovascular Exam: Present: normal rhythm. Absent: systolic murmur, diastolic murmur, rubs, gallop - GI/Abdominal GI/Abdominal exam: Present: soft, normal bowel sounds - Extremities Exam Extremities exam: Present: normal inspection - Back Exam Back exam: Present: normal inspection - Neurological Exam Neurological exam: Present: alert, oriented X3 - Psychiatric Psychiatric exam: normal affect and mood - Skin Skin exam: Present: warm, dry, intact, normal color. Absent: rash ED Course Vital Signs 05/05/17 05/05/17 10:55 15:36 Temperature 98.4 F Pulse Rate 77 82 Respiratory 18 16 Rate Blood Pressure 154/104 Blood Pressure 141/78 [Left] O2 Sat by Pulse 100 99 Oximetry ED Medical Decision Making - Lab Data Result diagrams: 05/05/17 11:01 05/05/17 11:01 Critical care attestation.: If time is entered above; I have spent that time in minutes in the direct care of this critically ill patient, excluding procedure time. ED Disposition Clinical Impression: Back pain Qualifiers: Back pain location: low back pain Chronicity: chronic Back pain laterality: bilateral Sciatica presence: without sciatica Qualified Code(s): M54.5 - Low back pain; G89.29 - Other chronic pain Abdominal pain Qualifiers: Abdominal location: generalized Qualified Code(s): R10.84 - Generalized abdominal pain Disposition: DC-01 TO HOME OR SELFCARE Is pt being admited?: No Does the pt Need Aspirin: No Condition: Stable Instructions: Abdominal Pain (ED) Referrals: PRIMARY CARE, [Primary Care Provider] - 3-5 Days
[2017-05-05] MEDS ORDERED: MORPHINE IM ONE (16:54)
== END 2017-05-05 17:22 | disposition home or self-care (01) ==
LOC: ED 10:47
DX: R10.84 Generalized abdominal pain (principal); M54.5 Low back pain; K21.9 Gastro-esophageal reflux disease without esophagitis
CPT/HCPCS: 36415; 80053; 81001; 83690; 85025; 96372; 99283; J2270; J2405

== ENCOUNTER 2017-06-22 18:37 | Emergency (ER) | payer SELFPAY ==
[2017-06-22 19:07] VITALS: BP 170/91
[2017-06-22 19:34] LABS: Basophils % (Auto) 0.5 % (0.0-1.8); Eosinophils % (Auto) 1.3 % (0.0-4.3); Hematocrit 33.7 % (30.3-42.9); Hemoglobin 12.1 gm/dl (10.1-14.3); Mean Corpuscular HGB Conc 36 % (30-34); Mean Corpuscular Hemoglobin 30 pg (28-32); Mean Corpuscular Volume 82 fl (79-97); Platelet Count 184 K/mm3 (140-440); Red Blood Count 4.12 M/mm3 (3.65-5.03); Red Cell Distribution Width 13.2 % (13.2-15.2); White Blood Count 2.7 K/mm3 (4.5-11.0)
[2017-06-22 19:58] LABS: Amylase 97 units/L (27-131); Anion Gap 15 mmol/L; BUN/Creatinine Ratio 17; Blood Urea Nitrogen 10 mg/dL (7-17); Calcium 8.6 mg/dL (8.4-10.2); Carbon Dioxide 33 mmol/L (22-30); Chloride 95.9 mmol/L (98-107); Glucose 193 mg/dL (65-100); Lipase 26 units/L (13-60); Sodium 141 mmol/L (137-145)
[2017-06-22 20:12] LABS: Potassium 2.9 mmol/L (3.6-5.0)
== END 2017-06-23 00:32 | disposition left against medical advice (07) ==
LOC: ED 18:37
DX: Z53.21 Procedure and treatment not carried out due to patient leaving prior to being seen by health care provider (principal)
CPT/HCPCS: 36415; 80048; 82150; 83690; 84484; 85025; 93005; 93010

== ENCOUNTER 2017-08-21 17:27 | Emergency (ER) | payer OTHER ==
[2017-08-21] MEDS ORDERED: ZOFRAN IV ONE (18:03)
[2017-08-21] MEDS ORDERED: NACL 0.9% 1000 ML 1,000 ML IV ONE (18:03)
[2017-08-21] MEDS ORDERED: REGLAN IV ONE (18:03)
--- NOTE | 2017-08-21 18:09 | Emergency Department Report ---
Chief Complaint: Abdominal Pain Stated Complaint: ABD PAIN X 4 YEARS Time Seen by Provider: 08/21/17 17:50 - HPI History of Present Illness: 52-year-old female history diabetes history of peripheral neuropathy history of gastroparesis history of cholecystectomy, off and on visits for intermittent right upper quadrant and diffuse abdominal pain that she has had off and on for days ,weeks months ? years. Last CT was December 2016 patient is back stating persistent abdominal pain not sure what's wrong -hasn't followed up with GI. Denies any vaginal complaints .pain in his right upper quadrant and diffuse with nausea vomiting denies hematemesis denies melena denies fever denies syncope denies chest pain, no fever, no ivory no stiff neck. - Exam Vital Signs: Vital Signs 08/21/17 17:31 Temperature 98.3 F Pulse Rate 74 Respiratory 18 Rate Blood Pressure 145/85 O2 Sat by Pulse 100 Oximetry Physical Exam: Vital signs stable awake alert oriented 3 complaining of diffuse abdominal pain patient is nontoxic but rolling on bed complaining of pain. MSE screening note: Focused history and physical exam performed. Due to findings the following was ordered: IV was ordered, pain medicine instituted, imaging or laboratory studies oredered, patient to main ED for further evaluation ED Disposition for MSE Condition: Stable Instructions: Abdominal Pain (ED) Referrals: JACK RILEY MD [Primary Care Provider] - 3-5 Days
[2017-08-21 18:36] LABS: Basophils % (Auto) 0.4 % (0.0-1.8); Eosinophils % (Auto) 0.9 % (0.0-4.3); Hematocrit 34.6 % (30.3-42.9); Hemoglobin 12.1 gm/dl (10.1-14.3); Mean Corpuscular HGB Conc 35 % (30-34); Mean Corpuscular Hemoglobin 30 pg (28-32); Mean Corpuscular Volume 86 fl (79-97); Platelet Count 207 K/mm3 (140-440); Red Blood Count 4.02 M/mm3 (3.65-5.03); Red Cell Distribution Width 13.7 % (13.2-15.2); White Blood Count 3.9 K/mm3 (4.5-11.0)
[2017-08-21 18:40] LABS: Alanine Aminotransferase 44 units/L (7-56); Albumin 3.8 g/dL (3.9-5); Albumin/Globulin Ratio 1.3 %; Alkaline Phosphatase 62 units/L (35-129); Anion Gap 15 mmol/L; BUN/Creatinine Ratio 23; Blood Urea Nitrogen 9 mg/dL (7-17); Carbon Dioxide 29 mmol/L (22-30); Chloride 97.3 mmol/L (98-107); Glucose 283 mg/dL (65-100); Lipase 27 units/L (13-60); Potassium 3.7 mmol/L (3.6-5.0); Sodium 138 mmol/L (137-145); Total Protein 6.7 g/dL (6.3-8.2)
[2017-08-21 18:55] LABS: Bilirubin,Direct < 0.2 mg/dL (0-0.2); Bilirubin,Indirect 0.1 mg/dL
--- NOTE | 2017-08-21 19:00 | Ultrasound Report ---
FINAL REPORT PROCEDURE: Abdominal ultrasound. TECHNIQUE: Real-time sonography in multiple planes of the abdomen was performed with image documentation. CPT 65959 HISTORY: Abdominal pain. COMPARISON: No prior studies are available for comparison. FINDINGS: The pancreas appears normal. The liver has uniform echogenicity. There are no focal masses. The gallbladder has been removed. There is no biliary dilatation. The spleen appears mildly enlarged. Both kidneys appear normal in size and have normal echogenicity. There is no hydronephrosis. There are no renal calcifications. The proximal portion of the abdominal aorta has a normal caliber. IMPRESSION: Previous cholecystectomy. No definite signs of acute disease.
[2017-08-21 19:05] LABS: Calcium 9.2 mg/dL (8.4-10.2)
[2017-08-21] MEDS ORDERED: REGLAN ONE (21:10)
[2017-08-21] MEDS ORDERED: NACL 0.9% 1000 ML 1,000 ML ONE (21:10)
[2017-08-21] MEDS ORDERED: ZOFRAN ONE (21:10)
[2017-08-21] MEDS ORDERED: BENTYL IM ONE ×2 (21:12→23:50)
--- NOTE | 2017-08-21 21:17 | Emergency Department Report ---
ED Abdominal Pain HPI - General Chief Complaint: Abdominal Pain Stated Complaint: ABD PAIN X 4 YEARS Time Seen by Provider: 08/21/17 17:50 Source: patient Mode of arrival: Ambulatory Limitations: No Limitations - History of Present Illness Initial Comments: Patient is 52 years old female history of diabetes and gastroparesis with multiple ER visits she came today with abdominal pain similar to previous presentation associated with his nausea and vomiting and diarrhea. Patient denied any fever, chest pain or shortness of breath. No urinary symptoms. MD Complaint: abdominal pain -: Gradual, month(s) Location: diffuse Radiation: none Migration to: no migration Severity: moderate Quality: cramping Consistency: intermittent Improves With: nothing Worsens With: nothing Associated Symptoms: nausea, vomiting, diarrhea - Related Data Home Medications Medication Instructions Recorded Confirmed Last Taken Insulin NPH/Regular [NovoLIN 70/30] 15 unit SUB-Q BID 10/14/15 12/26/16 19:30 Previous Rx's Medication Instructions Recorded Last Taken Type Famotidine [Pepcid] 20 mg PO QDAY #30 tablet 12/26/16 Unknown Rx Ondansetron [Zofran TAB] 4 mg PO Q8HR PRN #15 tablet 02/24/17 Unknown Rx Metoclopramide [Reglan TAB] 10 mg PO QID PRN #30 tablet 03/02/17 Unknown Rx Potassium Chloride [Klor-Con] 20 meq PO BID #20 packet 03/02/17 Unknown Rx Sucralfate [Carafate] 1 gm PO ONCE PRN #120 oral.liqd 03/02/17 Unknown Rx traMADol [Ultram 50 MG tab] 50 mg PO Q6HR PRN #10 tablet 03/24/17 Unknown Rx traMADol [Ultram 50 MG tab] 50 mg PO Q6HR PRN #14 tablet 05/01/17 Unknown Rx Dicyclomine [Bentyl] 10 mg PO QID PRN #20 capsule 05/05/17 Unknown Rx Ondansetron [Zofran TAB] 4 mg PO Q8HR PRN #15 tablet 05/05/17 Unknown Rx Allergies Allergy/AdvReac Type Severity Reaction Status Date / Time aspirin AdvReac Vomiting Verified 03/24/17 11:03 ED Review of Systems ROS: Stated complaint: ABD PAIN X 4 YEARS Other details as noted in HPI Comment: All other systems reviewed and negative Constitutional: denies: chills, fever ENT: denies: ear pain, throat pain, dental pain Respiratory: denies: cough, orthopnea, shortness of breath, SOB with exertion, SOB at rest Cardiovascular: denies: chest pain, palpitations, dyspnea on exertion Gastrointestinal: abdominal pain, nausea, vomiting, diarrhea. denies: constipation, hematemesis, melena, hematochezia Genitourinary: denies: urgency, dysuria, frequency, hematuria Musculoskeletal: denies: back pain Neurological: denies: headache, weakness, numbness, paresthesias, confusion ED Past Medical Hx - Past Medical History Hx Hypertension: (pt denies) Hx Heart Attack/AMI: No Hx Diabetes: Yes Hx GERD: Yes Hx Kidney Stones: No Additional medical history: NEUROPATHY, fibroids. CATARACT - Surgical History Hx Cholecystectomy: Yes Additional Surgical History: left fallopian tube removed at age 19 - Social History Smoking Status: Never Smoker Substance Use Type: None - Medications Home Medications: Home Medications Medication Instructions Recorded Confirmed Last Taken Type Insulin NPH/Regular [NovoLIN 70/30] 15 unit SUB-Q BID 10/14/15 12/26/16 19:30 History Famotidine [Pepcid] 20 mg PO QDAY #30 tablet 12/26/16 Unknown Rx Ondansetron [Zofran TAB] 4 mg PO Q8HR PRN #15 tablet 02/24/17 Unknown Rx Metoclopramide [Reglan TAB] 10 mg PO QID PRN #30 tablet 03/02/17 Unknown Rx Potassium Chloride [Klor-Con] 20 meq PO BID #20 packet 03/02/17 Unknown Rx Sucralfate [Carafate] 1 gm PO ONCE PRN #120 oral.liqd 03/02/17 Unknown Rx traMADol [Ultram 50 MG tab] 50 mg PO Q6HR PRN #10 tablet 03/24/17 Unknown Rx traMADol [Ultram 50 MG tab] 50 mg PO Q6HR PRN #14 tablet 05/01/17 Unknown Rx Dicyclomine [Bentyl] 10 mg PO QID PRN #20 capsule 05/05/17 Unknown Rx Ondansetron [Zofran TAB] 4 mg PO Q8HR PRN #15 tablet 05/05/17 Unknown Rx ED Physical Exam - General Limitations: No Limitations General appearance: alert, in no apparent distress - Head Head exam: Present: atraumatic, normocephalic, normal inspection - Eye Eye exam: Present: normal appearance, PERRL - ENT ENT exam: Present: normal exam, normal orophraynx, mucous membranes moist - Neck Neck exam: Present: normal inspection, full ROM. Absent: tenderness, meningismus, lymphadenopathy - Respiratory Respiratory exam: Present: normal lung sounds bilaterally. Absent: respiratory distress, wheezes, rales, chest wall tenderness - Cardiovascular Cardiovascular Exam: Present: regular rate, normal rhythm, normal heart sounds - GI/Abdominal GI/Abdominal exam: Present: soft, normal bowel sounds. Absent: distended, tenderness, guarding, rebound, rigid, organomegaly, mass, bruit, pulsatile mass , hernia - Extremities Exam Extremities exam: Present: normal inspection, full ROM, normal capillary refill. Absent: tenderness, pedal edema - Back Exam Back exam: Present: normal inspection, full ROM. Absent: tenderness, CVA tenderness (R), CVA tenderness (L), muscle spasm, paraspinal tenderness, vertebral tenderness - Neurological Exam Neurological exam: Present: alert, oriented X3, CN II-XII intact, normal gait, reflexes normal. Absent: motor sensory deficit - Skin Skin exam: Present: warm, intact, normal color ED Course Vital Signs 08/21/17 08/21/17 08/21/17 17:31 20:41 20:51 Temperature 98.3 F Pulse Rate 74 73 Respiratory 18 16 Rate Blood Pressure 145/85 176/152 O2 Sat by Pulse 100 99 99 Oximetry 08/21/17 08/21/17 08/21/17 21:01 21:11 21:21 Temperature Pulse Rate 73 64 76 Respiratory 9 L 18 18 Rate Blood Pressure 174/82 174/82 174/82 O2 Sat by Pulse 100 100 99 Oximetry 08/21/17 08/21/17 08/21/17 21:30 21:41 22:00 Temperature Pulse Rate 62 72 66 Respiratory 10 L 11 L 16 Rate Blood Pressure 152/70 152/70 145/86 O2 Sat by Pulse 100 100 100 Oximetry 08/21/17 08/21/17 08/21/17 22:15 22:31 22:39 Temperature 98 F Pulse Rate 68 70 Respiratory 16 15 14 Rate Blood Pressure 145/86 128/75 O2 Sat by Pulse 100 100 99 Oximetry 08/21/17 08/21/17 22:41 22:51 Temperature Pulse Rate 68 67 Respiratory 15 17 Rate Blood Pressure 145/86 145/86 O2 Sat by Pulse 100 100 Oximetry - Reevaluation(s) Reevaluation #1: 08/21/17 23:35 Patient is stated that she is feeling better. Indicated about gastroparesis and a need to follow-up with her primary doctor and a tight control of blood sugar. ED Medical Decision Making - Lab Data Result diagrams: 08/21/17 18:07 08/21/17 18:07 - Radiology Data Radiology results: report reviewed Referring Physician: TOMÁS RUGGIERO Patient Name: CORRY MILIAN Date of : 1965 Sex: Female Report Date: 2017-08-21 Report Status: Finalized Findings [address] [address] Ultrasound Report Signed Patient: CORRY MILIAN MR#: [id number] : 1965 Acct:[id number] Age/Sex: 52 / F ADM Date: 08/21/17 Loc: ED Attending Dr: Ordering Physician: TOMÁS RUGGIERO MD Date of Service: 08/21/17 Procedure(s): US abdomen complete Accession Number(s): [id number] cc: TOMÁS RUGGIERO MD FINAL REPORT PROCEDURE: Abdominal ultrasound. TECHNIQUE: Real-time sonography in multiple planes of the abdomen was performed with image documentation. CPT 06646 HISTORY: Abdominal pain. COMPARISON: No prior studies are available for comparison. FINDINGS: The pancreas appears normal. The liver has uniform echogenicity. There are no focal masses. The gallbladder has been removed. There is no biliary dilatation. The spleen appears mildly enlarged. Both kidneys appear normal in size and have normal echogenicity. There is no hydronephrosis. There are no renal calcifications. The proximal portion of the abdominal aorta has a normal caliber. IMPRESSION: Previous cholecystectomy. No definite signs of acute disease. Transcribed By: [facility] Dictated By: JACK FERREIRA MD Electronically Authenticated By: JACK FERREIRA MD Signed Date/Time: 08/21/171455 DD/ 55 TD/TT: 08/21/171455 Critical care attestation.: If time is entered above; I have spent that time in minutes in the direct care of this critically ill patient, excluding procedure time. ED Disposition Clinical Impression: Abdominal pain, Gastroparesis Disposition: - TO HOME OR SELFCARE Is pt being admited?: No Condition: Stable Instructions: Acute Nausea and Vomiting (ED), Abdominal Pain (ED) Referrals: JACK RILEY MD [Primary Care Provider] - 3-5 Days
[2017-08-21 21:21] LABS: Bilirubin,Urine NEG (Negative); Blood,Urine NEG (Negative); Ketones,Urine NEG (Negative); Leukocyte Esterase,Urine TR (Negative); Mucus,Urine FEW /HPF; Nitrite,Urine NEG (Negative); Protein,Urine <15 mg/dL mg/dL (Negative)
[2017-08-21 23:39] VITALS: BP 128/75
== END 2017-08-22 00:13 | disposition home or self-care (01) ==
LOC: ED 17:27
DX: K31.84 Gastroparesis (principal); E11.9 Type 2 diabetes mellitus without complications; Z90.49 Acquired absence of other specified parts of digestive tract; Z79.4 Long term (current) use of insulin; Z88.6 Allergy status to analgesic agent
CPT/HCPCS: 36415; 76700; 80048; 80074; 81001; 82962; 83690; 85025; 96361; 96372; 96374; 96375; 99284; J0500; J2405; J2765; J7030; J1815

== ENCOUNTER 2017-12-09 23:32 | Emergency (ER) | payer SELFPAY ==
[2017-12-09] MEDS ORDERED: TYLENOL ONE (23:58)
[2017-12-09] MEDS ORDERED: TYLENOL PO ONE (23:58)
[2017-12-10 00:23] LABS: Basophils % (Auto) 0.6 % (0.0-1.8); Eosinophils % (Auto) 0.9 % (0.0-4.3); Hematocrit 35.8 % (30.3-42.9); Hemoglobin 12.5 gm/dl (10.1-14.3); Lymphocytes # (Auto) 2.4 K/mm3 (1.2-5.4); Lymphocytes % (Auto) 44.3 % (13.4-35.0); Mean Corpuscular HGB Conc 35 % (30-34); Mean Corpuscular Hemoglobin 28 pg (28-32); Mean Corpuscular Volume 80 fl (79-97); Monocytes # (Auto) 0.5 K/mm3 (0.0-0.8); Monocytes % (Auto) 8.7 % (0.0-7.3); Platelet Count 219 K/mm3 (140-440); Red Blood Count 4.45 M/mm3 (3.65-5.03); Red Cell Distribution Width 13.6 % (13.2-15.2)
[2017-12-10 00:36] LABS: BUN/Creatinine Ratio 32; Blood Urea Nitrogen 19 mg/dL (7-17); Calcium 8.3 mg/dL (8.4-10.2); Hemolysis Index 1
[2017-12-10] MEDS ORDERED: TORADOL IV ONE (03:47)
[2017-12-10] MEDS ORDERED: TORADOL ONE (03:48)
[2017-12-10 04:11] LABS: Bilirubin,Urine NEG (Negative); Blood,Urine NEG (Negative); Color,Urine Yellow (Yellow); Mucus,Urine FEW /HPF; Protein,Urine <15 mg/dL mg/dL (Negative); Urobilinogen,Urine < 2.0 mg/dL (<2.0)
[2017-12-10 04:21] LABS: Amphetamine Screen,Urine PRESUMPTIVE NEGATIVE; Benzodiazepines Screen,Urine PRESUMPTIVE NEGATIVE; Cannabinoid Screen,Urine PRESUMPTIVE NEGATIVE; Cocaine Screen,Urine PRESUMPTIVE NEGATIVE; Methadone Screen,Urine PRESUMPTIVE NEGATIVE; Opiate Screen,Urine PRESUMPTIVE NEGATIVE
[2017-12-10] MEDS ORDERED: K-DUR PO ONE (05:38)
[2017-12-10] MEDS ORDERED: MORPHINE IV ONE (05:39)
[2017-12-10] MEDS ORDERED: ZOFRAN IV ONE (05:39)
[2017-12-10] MEDS ORDERED: KCL 10 MEQ in NACL 0.9% 1000 ML 1,000 ML IV SCH (05:45)
[2017-12-10] MEDS ORDERED: SUBLIMAZE IV ONE (07:02)
[2017-12-10] MEDS ORDERED: ATIVAN IV ONE (07:02)
[2017-12-10] MEDS ORDERED: HumuLIN R IV ONE (07:03)
[2017-12-10] MEDS: NACL 0.9% 1000 ML 1,000 ML IV ONE ×2 (07:10→07:38)
[2017-12-10 07:39] VITALS: BP 126/68
--- NOTE | 2017-12-10 08:19 | Emergency Department Report ---
HPI - General Chief Complaint: Pain General Time Seen by Provider: 12/10/17 06:51 - HPI HPI: The patient is a 52 yo f presenting for abd pain, with hx of DM, neuropathy, and chronic abd pain. Patient reports generalized abd pain for the past 5 days, radiating to the back, 9/10 in severity currently, aching and burning in quality , associated with n/v. She states that pain consistent with previous pain episodes. She denies trauma to the abd, fever, chills, cp, sob, dysuria, vag discharge, vag bleeding, diarrhea. ED Past Medical Hx - Past Medical History Hx Hypertension: (pt denies) Hx Heart Attack/AMI: No Hx Diabetes: Yes Hx GERD: Yes Hx Kidney Stones: No Additional medical history: NEUROPATHY, fibroids. CATARACT - Surgical History Hx Cholecystectomy: Yes Additional Surgical History: left fallopian tube removed at age 19 - Social History Smoking Status: Never Smoker Substance Use Type: None - Medications Home Medications: Home Medications Medication Instructions Recorded Confirmed Last Taken Type Insulin NPH/Regular [NovoLIN 70/30] 15 unit SUB-Q BID 10/14/15 12/26/16 19:30 History Famotidine [Pepcid] 20 mg PO QDAY #30 tablet 12/26/16 Unknown Rx Ondansetron [Zofran TAB] 4 mg PO Q8HR PRN #15 tablet 02/24/17 Unknown Rx Metoclopramide [Reglan TAB] 10 mg PO QID PRN #30 tablet 03/02/17 Unknown Rx Potassium Chloride [Klor-Con] 20 meq PO BID #20 packet 03/02/17 Unknown Rx Sucralfate [Carafate] 1 gm PO ONCE PRN #120 oral.liqd 03/02/17 Unknown Rx traMADol [Ultram 50 MG tab] 50 mg PO Q6HR PRN #10 tablet 03/24/17 Unknown Rx traMADol [Ultram 50 MG tab] 50 mg PO Q6HR PRN #14 tablet 05/01/17 Unknown Rx Dicyclomine [Bentyl] 10 mg PO QID PRN #20 capsule 05/05/17 Unknown Rx Ondansetron [Zofran TAB] 4 mg PO Q8HR PRN #15 tablet 05/05/17 Unknown Rx Metoclopramide [Reglan] 10 mg PO TID PRN #20 tab 08/21/17 Unknown Rx Dicyclomine [Bentyl] 10 mg PO QID #30 capsule 12/10/17 Unknown Rx Potassium Chloride [K-Dur] 20 meq PO QDAY #10 tablet 12/10/17 Unknown Rx ED Review of Systems ROS: Stated complaint: BODY PAIN Other details as noted in HPI Comment: All other systems reviewed and negative Constitutional: denies: fever Eyes: denies: eye pain ENT: denies: throat pain Respiratory: denies: shortness of breath Cardiovascular: denies: chest pain Endocrine: increased thirst Gastrointestinal: abdominal pain, nausea, vomiting Genitourinary: denies: dysuria Musculoskeletal: denies: back pain Skin: denies: rash Neurological: denies: headache Psychiatric: denies: depression Hematological/Lymphatic: denies: easy bleeding Physical Exam - Physical Exam Vital Signs: Vital Signs 12/09/17 12/10/17 12/10/17 23:41 01:49 01:51 Temperature 98.6 F Pulse Rate 68 103 H 66 Respiratory 18 12 Rate Blood Pressure 98/61 116/51 O2 Sat by Pulse 100 100 Oximetry 12/10/17 12/10/17 12/10/17 01:55 02:00 02:15 Temperature 98.4 F Pulse Rate 65 68 Respiratory 14 15 20 Rate Blood Pressure 122/68 129/78 O2 Sat by Pulse 98 99 100 Oximetry 12/10/17 12/10/17 12/10/17 02:31 02:45 03:01 Temperature Pulse Rate 65 68 65 Respiratory 15 17 11 L Rate Blood Pressure 129/78 129/78 134/81 O2 Sat by Pulse 100 100 100 Oximetry 12/10/17 12/10/17 12/10/17 03:15 03:31 03:45 Temperature Pulse Rate 74 71 72 Respiratory 15 17 18 Rate Blood Pressure 134/81 115/64 115/64 O2 Sat by Pulse 100 97 99 Oximetry 12/10/17 12/10/17 12/10/17 03:53 04:01 04:15 Temperature Pulse Rate 70 Respiratory 18 17 13 Rate Blood Pressure 160/91 160/91 O2 Sat by Pulse 99 99 Oximetry 12/10/17 12/10/17 12/10/17 04:31 04:45 05:00 Temperature Pulse Rate 69 74 65 Respiratory 12 23 18 Rate Blood Pressure 155/81 155/81 146/89 O2 Sat by Pulse 97 99 99 Oximetry 12/10/17 12/10/17 12/10/17 05:15 05:30 05:45 Temperature Pulse Rate 71 67 57 L Respiratory 15 14 18 Rate Blood Pressure 146/89 148/78 148/78 O2 Sat by Pulse 99 98 100 Oximetry 12/10/17 12/10/17 12/10/17 06:00 06:15 06:16 Temperature Pulse Rate 67 70 Respiratory 20 13 18 Rate Blood Pressure 169/94 169/94 O2 Sat by Pulse 100 100 Oximetry 12/10/17 12/10/17 12/10/17 06:31 06:45 06:46 Temperature Pulse Rate 75 71 Respiratory 17 17 16 Rate Blood Pressure 134/58 134/58 O2 Sat by Pulse 99 99 Oximetry Physical Exam: General: well-nourished, well-developed, no acute distress Head: Normocephalic, atraumatic Eyes: normal sclera ENT: Mucous membranes are pale and dry Neck: trachea midline, neck supple, No neck stiffness, no cervical adenopathy Respiratory: Breath sounds equal bilaterally, no wheezing, rales, or rhonchi Cardio: S1 and S2 present, no murmurs, rubs, gallops, capillary refill is delayed Abdomen: Normoactive bowel sounds, soft abdomen, epigastric and periumbilical tenderness present, no pain at McBurney's point, gonzalez sign neg, no rebound tenderness, guarding, or rigidity Chest WALL/Back: No tenderness to palpation of the chest wall, no CVA tenderness with percussion Musc: No pitting edema Skin: No rash Neuro: no facial drooping, normal speech Psych: normal affect ED Course Vital Signs 12/09/17 12/10/17 12/10/17 23:41 01:49 01:51 Temperature 98.6 F Pulse Rate 68 103 H 66 Respiratory 18 12 Rate Blood Pressure 98/61 116/51 O2 Sat by Pulse 100 100 Oximetry 12/10/17 12/10/17 12/10/17 01:55 02:00 02:15 Temperature 98.4 F Pulse Rate 65 68 Respiratory 14 15 20 Rate Blood Pressure 122/68 129/78 O2 Sat by Pulse 98 99 100 Oximetry 12/10/17 12/10/17 12/10/17 02:31 02:45 03:01 Temperature Pulse Rate 65 68 65 Respiratory 15 17 11 L Rate Blood Pressure 129/78 129/78 134/81 O2 Sat by Pulse 100 100 100 Oximetry 12/10/17 12/10/17 12/10/17 03:15 03:31 03:45 Temperature Pulse Rate 74 71 72 Respiratory 15 17 18 Rate Blood Pressure 134/81 115/64 115/64 O2 Sat by Pulse 100 97 99 Oximetry 12/10/17 12/10/17 12/10/17 03:53 04:01 04:15 Temperature Pulse Rate 70 Respiratory 18 17 13 Rate Blood Pressure 160/91 160/91 O2 Sat by Pulse 99 99 Oximetry 12/10/17 12/10/17 12/10/17 04:31 04:45 05:00 Temperature Pulse Rate 69 74 65 Respiratory 12 23 18 Rate Blood Pressure 155/81 155/81 146/89 O2 Sat by Pulse 97 99 99 Oximetry 12/10/17 12/10/17 12/10/17 05:15 05:30 05:45 Temperature Pulse Rate 71 67 57 L Respiratory 15 14 18 Rate Blood Pressure 146/89 148/78 148/78 O2 Sat by Pulse 99 98 100 Oximetry 12/10/17 12/10/17 12/10/17 06:00 06:15 06:16 Temperature Pulse Rate 67 70 Respiratory 20 13 18 Rate Blood Pressure 169/94 169/94 O2 Sat by Pulse 100 100 Oximetry 12/10/17 12/10/17 12/10/17 06:31 06:45 06:46 Temperature Pulse Rate 75 71 Respiratory 17 17 16 Rate Blood Pressure 134/58 134/58 O2 Sat by Pulse 99 99 Oximetry ED Medical Decision Making - Lab Data Result diagrams: 12/10/17 00:01 12/10/17 00:01 - Medical Decision Making Patient given IV pain meds and zofran. Labs revealed elevated glucose, and elevated RBC, HGb, and Hct, and otherwise were not concerning, including nml WBC , LFTs, lipase, urinalysis. Patient given IV fluid for txt of dehydration and hyperglycemia. On re-eval patient reports symptoms nearly resolved. Patient discharged in stable condition. Critical care attestation.: If time is entered above; I have spent that time in minutes in the direct care of this critically ill patient, excluding procedure time. ED Disposition Clinical Impression: Acute hyperglycemia, Dehydration, mild, Abdominal pain, acute, periumbilical, Hypokalemia Disposition: - TO HOME OR SELFCARE Is pt being admited?: No Does the pt Need Aspirin: No Condition: Stable Instructions: Diabetic Neuropathy (ED), Abdominal Pain (ED), Musculoskeletal Pain (ED) Referrals: PRIMARY CARE, [Primary Care Provider] - 3-5 Days Time of Disposition: 08:21
== END 2017-12-10 08:49 | disposition home or self-care (01) ==
LOC: ED 23:32
DX: E11.65 Type 2 diabetes mellitus with hyperglycemia (principal); E87.6 Hypokalemia; E86.0 Dehydration; R10.33 Periumbilical pain; K21.9 Gastro-esophageal reflux disease without esophagitis; D21.9 Benign neoplasm of connective and other soft tissue, unspecified; G62.9 Polyneuropathy, unspecified; Z90.49 Acquired absence of other specified parts of digestive tract; Z90.79 Acquired absence of other genital organ(s); Z88.6 Allergy status to analgesic agent; Z79.899 Other long term (current) drug therapy
CPT/HCPCS: 36415; 80048; 80307; 81001; 82805; 82962; 85025; 96365; 96375; 99284; J1885; J2060; J2270; J2405; J3010; J3480; J7030; J1815

== ENCOUNTER 2017-12-14 06:54 | Emergency (ER) | payer SELFPAY ==
[2017-12-14 07:36] LABS: Basophils % (Auto) 0.9 % (0.0-1.8); Eosinophils # (Auto) 0.1 K/mm3 (0.0-0.4); Eosinophils % (Auto) 1.5 % (0.0-4.3); Hematocrit 33.9 % (30.3-42.9); Hemoglobin 12.1 gm/dl (10.1-14.3); Lymphocytes # (Auto) 1.5 K/mm3 (1.2-5.4); Lymphocytes % (Auto) 38.9 % (13.4-35.0); Mean Corpuscular HGB Conc 36 % (30-34); Mean Corpuscular Hemoglobin 29 pg (28-32); Mean Corpuscular Volume 81 fl (79-97); Monocytes # (Auto) 0.3 K/mm3 (0.0-0.8); Monocytes % (Auto) 8.2 % (0.0-7.3); Platelet Count 207 K/mm3 (140-440); Red Cell Distribution Width 13.5 % (13.2-15.2)
[2017-12-14] MEDS ORDERED: MORPHINE IV ONE (07:37)
--- NOTE | 2017-12-14 07:45 | Emergency Department Report ---
ED Back Pain/Injury HPI - General Chief Complaint: Pain General Stated Complaint: FLANK PAIN Time Seen by Provider: 12/14/17 07:24 Source: patient, EMS Limitations: No Limitations - History of Present Illness Initial Comments: This is a 52 y.o. female that presents with bilateral flank pain for 8 days. Patient reports history of DM2, neuropathy, GERD, and chronic back pain. She has been seen here multiple times for abdominal pain. She is concerned this back pain is associated with abdomen. She is currently having nausea/vomiting and diarrhea prior to arrival. No episodes witnessed in ER. She is taking tylenol with no relief of symptoms. Reports pain as constant, sharp, non-radiating pain that remains in bilateral flank. Pain is 10/10 on pain scale. Denies radiating pain, chest pain, weakness, change in voiding pattern, frequency, urgency, and dysuria. MD Complaint: back pain -: week(s) (1 week) Similar Symptoms Previously: Yes Place: home Radiation: none Severity: severe Severity scale (0 -10): 10 Quality: sharp Consistency: constant Improves With: none Worsens With: movement, walking Context: unknown Associated Symptoms: nausea/vomiting. denies: confusion, weakness, chest pain, numbness, difficulty walking, cough, difficulty urinating, diaphoresis, incontinence, fever/chills, constipation, headaches, abdominal pain, loss of appetite, malaise, rash, seizure, shortness of breath, syncope Treatments Prior to Arrival: acetaminophen - Related Data Home Medications Medication Instructions Recorded Confirmed Last Taken Insulin NPH/Regular [NovoLIN 70/30] 15 unit SUB-Q BID 10/14/15 12/26/16 19:30 Previous Rx's Medication Instructions Recorded Last Taken Type Famotidine [Pepcid] 20 mg PO QDAY #30 tablet 12/26/16 Unknown Rx Ondansetron [Zofran TAB] 4 mg PO Q8HR PRN #15 tablet 02/24/17 Unknown Rx Metoclopramide [Reglan TAB] 10 mg PO QID PRN #30 tablet 03/02/17 Unknown Rx Potassium Chloride [Klor-Con] 20 meq PO BID #20 packet 03/02/17 Unknown Rx Sucralfate [Carafate] 1 gm PO ONCE PRN #120 oral.liqd 03/02/17 Unknown Rx traMADol [Ultram 50 MG tab] 50 mg PO Q6HR PRN #10 tablet 03/24/17 Unknown Rx traMADol [Ultram 50 MG tab] 50 mg PO Q6HR PRN #14 tablet 05/01/17 Unknown Rx Dicyclomine [Bentyl] 10 mg PO QID PRN #20 capsule 05/05/17 Unknown Rx Ondansetron [Zofran TAB] 4 mg PO Q8HR PRN #15 tablet 05/05/17 Unknown Rx Metoclopramide [Reglan] 10 mg PO TID PRN #20 tab 08/21/17 Unknown Rx Dicyclomine [Bentyl] 10 mg PO QID #30 capsule 12/10/17 Unknown Rx Potassium Chloride [K-Dur] 20 meq PO QDAY #10 tablet 12/10/17 Unknown Rx Potassium Chloride [Klor-Con] 20 meq PO DAILY 10 Days #10 packet 12/14/17 Unknown Rx traMADol [Ultram 50 MG tab] 50 mg PO Q6HR PRN #15 tablet 12/14/17 Unknown Rx Allergies Allergy/AdvReac Type Severity Reaction Status Date / Time aspirin AdvReac Vomiting Verified 03/24/17 11:03 ED Review of Systems ROS: Stated complaint: FLANK PAIN Other details as noted in HPI Constitutional: denies: chills, fever Respiratory: denies: cough, shortness of breath, wheezing Cardiovascular: denies: chest pain, palpitations Endocrine: no symptoms reported Gastrointestinal: nausea, vomiting. denies: abdominal pain, diarrhea, constipation Genitourinary: denies: urgency, dysuria, frequency, hematuria, discharge Musculoskeletal: back pain (bilateral flank pain). denies: joint swelling, arthralgia Skin: denies: rash, lesions Neurological: denies: headache, weakness, paresthesias Psychiatric: denies: anxiety, depression ED Past Medical Hx - Past Medical History NEUROPATHY, fibroids. CATARACT ED Back Pain Physical Exam - Exam General: Vital signs noted. No distress. Alert and acting appropriately. Back/Abdomen: Yes Flank Tenderness (bilateral), No Abdominal Tenderness, No Perithoracic Tenderness, No Perilumbar Tenderness, No Sacroiliac Tenderness, No Straight Leg Raise Pain Neuro: Yes Normal Sensation, Yes Normal DTR's, Yes Normal Gait, No Motor Weakness ED Course Vital Signs 12/14/17 07:12 Temperature 98.9 F Pulse Rate 74 Respiratory 18 Rate Blood Pressure 178/90 O2 Sat by Pulse 99 Oximetry ED Medical Decision Making - Lab Data Result diagrams: 12/14/17 07:20 12/14/17 07:19 - Radiology Data Radiology results: report reviewed CT of abdomen: Unremarkable kidneys and renal collecting systems. No nephrolithiasis is appreciated. Bilateral adrenal adenomas. Cholecystectomy. No acute processes identified in the abdomen or pelvis. - Medical Decision Making This is a 52 y.o. female that presents with bilateral flank pain for 8 days. History of DM2, Gerd, neuropathy, and chronic back pain. Patient was examined by me. Obtained CMP, CBC, UA, & Lipase. Review labs. Glucose 291, WBC low, dehydration. IV access established. Given Regular insulin 5 units twice, NS 1L bolus, Klor-con 40 mEq once, ativan 1 mg IV, and morphine [address] of abdomen and pelvis read by radiologist. Unremarkable kidneys and renal collecting systems. No nephrolithiasis is appreciated. Bilateral adrenal adenomas. Cholecystectomy. No acute processes identified in the abdomen or pelvis. Glucose 180 after treatment and reports feeling better. Continue current insulin dose. Start klor-con 20 meq po daily x 10 days. Follow up with PCP for referral to endocrinology and pain management. Discussed plan with patient and agreed to plan. No further questions noted by the patient. Discharged home in stable condition. Critical care attestation.: If time is entered above; I have spent that time in minutes in the direct care of this critically ill patient, excluding procedure time. ED Disposition Clinical Impression: Hypokalemia, Arthralgia of back Low back pain Qualifiers: Chronicity: acute Back pain laterality: bilateral Sciatica presence: without sciatica Qualified Code(s): M54.5 - Low back pain Uncontrolled type 2 diabetes mellitus Qualifiers: Diabetes mellitus usp insulin use: with usp use Diabetes mellitus complication status: with kidney complications Diabetes mellitus complication detail: with nephropathy Qualified Code(s): E11.21 - Type 2 diabetes mellitus with diabetic nephropathy Disposition: - TO HOME OR SELFCARE Is pt being admited?: No Does the pt Need Aspirin: No Condition: Stable Instructions: Diabetes Mellitus Type 2 in Adults (ED) Additional Instructions: Never discontinue insulin and metformin without discussion with doctor. Low blood sugar is often accompanied by symptoms such as tachycardia, sweating, shakiness, intense hunger, or confusion, and must be dealt with promptly by eating a carbohydrate such as apple or drink juice. After self-treatment, blood sugar should be checked if possible. Return to ER or f/u with ER promptly if blood glucose drops below 70 or greater than 150 so that therapy may be adjusted. Eat a carbohydrate snack prior to exercise if blood glucose is less than 100. Follow up with Primary Care Provider in 2-3 days. Request referrals to endocrinology for management of diabetes. Request referrals to pain management for chronic pain from primary care provider. Prescriptions: Potassium Chloride [Klor-Con] 20 meq PO DAILY 10 Days #10 packet traMADol [Ultram 50 MG tab] 50 mg PO Q6HR PRN #15 tablet PRN Reason: Pain Referrals: [facility] [Outside] - 3-5 Days [facility] [Outside] - 3-5 Days [facility] [Outside] - 3-5 Days Time of Disposition: 11:34 Print Language: TURKISH
[2017-12-14] MEDS ORDERED: NACL 0.9% 1000 ML 1,000 ML IV ONE (07:47)
[2017-12-14 07:57] LABS: Bilirubin,Urine NEG (Negative); Blood,Urine NEG (Negative); Color,Urine Yellow (Yellow); Protein,Urine <15 mg/dL mg/dL (Negative)
[2017-12-14 07:57] LABS: Alanine Aminotransferase 19 units/L (7-56); Albumin 3.8 g/dL (3.9-5); BUN/Creatinine Ratio 35; Blood Urea Nitrogen 14 mg/dL (7-17); Calcium 8.5 mg/dL (8.4-10.2); Hemolysis Index 9; Lipase 21 units/L (13-60)
[2017-12-14] MEDS ORDERED: ATIVAN IV ONE (08:14)
[2017-12-14] MEDS: POTASSIUM CHLORIDE FEEDTUBE ONE ×2 (08:19→08:54)
[2017-12-14] MEDS ORDERED: POTASSIUM CHLORIDE FEEDTUBE ONE (08:21)
[2017-12-14] MEDS ORDERED: HumuLIN R IV ONE ×2 (08:30→09:59)
[2017-12-14] MEDS ORDERED: K-DUR PO ONE (08:32)
--- NOTE | 2017-12-14 09:10 | Cat Scan Report ---
CT ABDOMEN PELVIS WITHOUT CONTRAST: HISTORY: Bilateral flank pain, rule out kidney stones. COMPARISON: 12/26/16. TECHNIQUE: Helical CT in 1.25mm intervals without IV contrast. Sagittal and coronal reconstructions. FINDINGS: Lung bases: Normal. Liver: Normal. Biliary system: Cholecystectomy. No biliary dilatation. Pancreas: Normal. Spleen: Normal. Kidneys/ureters/bladder: The kidneys are normal size, contour and attenuation. No evidence for nephrolithiasis, cystic disease or mass. The ureters and bladder are unremarkable. Adrenal glands: Bilateral low density adrenal masses are identified measuring 1.1 cm on the right and 2.5 cm on the left. Internal density is consistent with an adrenal adenomas. Aorta: Normal. Intestines: Within normal limits given no oral contrast was administered. Appendix: Normal. Pelvic viscera: The uterus is enlarged and lobular. At least 3 large fibroids are identified within the uterus measuring 5.1 cm, 4.5 cm, and 3.8 cm. The adnexa are unremarkable. Ascites: None. Adenopathy: None. Musculoskeletal: Normal. IMPRESSION: Unremarkable kidneys and renal collecting systems. No nephrolithiasis is appreciated. Bilateral adrenal adenomas. Cholecystectomy. No acute processes identified in the abdomen or pelvis.
[2017-12-14 11:39] VITALS: BP 139/78
== END 2017-12-14 11:38 | disposition home or self-care (01) ==
LOC: ED 06:54
DX: E87.6 Hypokalemia (principal); M54.5 Low back pain; R10.9 Unspecified abdominal pain; E11.65 Type 2 diabetes mellitus with hyperglycemia; K21.9 Gastro-esophageal reflux disease without esophagitis; G62.9 Polyneuropathy, unspecified; Z79.4 Long term (current) use of insulin; Z88.8 Allergy status to other drugs, medicaments and biological substances
CPT/HCPCS: 36415; 74176; 80053; 81001; 82962; 83690; 85025; 96361; 96374; 96375; 96376; 99284; J2060; J2270; J7030; J1815

== ENCOUNTER 2018-01-24 07:37 | Emergency (ER) | payer SELFPAY ==
--- NOTE | 2018-01-24 11:39 | Emergency Department Report ---
ED General Adult HPI - General Chief complaint: Pain General Stated complaint: PAIN ALL OVER Time Seen by Provider: 01/24/18 11:26 Source: patient Mode of arrival: Ambulatory Limitations: No Limitations - History of Present Illness Initial comments: Patient is 52 years old female with history of diabetes and chronic pain. Patient presented to the ER complaining of generalized body pain especially the back area. Patient denied any recent injury. She stated that she follow-up at [place] and they usually give her tramadol, but usually help with her pain. Stated that her pain is similar to what she used to have and she ran out of her tramadol. She denied any headache, neck pain or chest pain. - Related Data Home Medications Medication Instructions Recorded Confirmed Last Taken Insulin NPH/Regular [NovoLIN 70/30] 15 unit SUB-Q BID 10/14/15 12/26/16 19:30 Previous Rx's Medication Instructions Recorded Last Taken Type Famotidine [Pepcid] 20 mg PO QDAY #30 tablet 12/26/16 Unknown Rx Ondansetron [Zofran TAB] 4 mg PO Q8HR PRN #15 tablet 02/24/17 Unknown Rx Metoclopramide [Reglan TAB] 10 mg PO QID PRN #30 tablet 03/02/17 Unknown Rx Potassium Chloride [Klor-Con] 20 meq PO BID #20 packet 03/02/17 Unknown Rx Sucralfate [Carafate] 1 gm PO ONCE PRN #120 oral.liqd 03/02/17 Unknown Rx traMADol [Ultram 50 MG tab] 50 mg PO Q6HR PRN #10 tablet 03/24/17 Unknown Rx traMADol [Ultram 50 MG tab] 50 mg PO Q6HR PRN #14 tablet 05/01/17 Unknown Rx Dicyclomine [Bentyl] 10 mg PO QID PRN #20 capsule 05/05/17 Unknown Rx Ondansetron [Zofran TAB] 4 mg PO Q8HR PRN #15 tablet 05/05/17 Unknown Rx Metoclopramide [Reglan] 10 mg PO TID PRN #20 tab 08/21/17 Unknown Rx Dicyclomine [Bentyl] 10 mg PO QID #30 capsule 12/10/17 Unknown Rx Potassium Chloride [K-Dur] 20 meq PO QDAY #10 tablet 12/10/17 Unknown Rx Potassium Chloride [Klor-Con] 20 meq PO DAILY 10 Days #10 packet 12/14/17 Unknown Rx traMADol [Ultram 50 MG tab] 50 mg PO Q6HR PRN #15 tablet 12/14/17 Unknown Rx Allergies Allergy/AdvReac Type Severity Reaction Status Date / Time aspirin AdvReac Vomiting Verified 03/24/17 11:03 ED Review of Systems ROS: Stated complaint: PAIN ALL OVER Other details as noted in HPI Comment: All other systems reviewed and negative Constitutional: denies: chills, fever Respiratory: denies: cough, orthopnea, shortness of breath, SOB with exertion, SOB at rest, wheezing Cardiovascular: denies: chest pain, palpitations, dyspnea on exertion, orthopnea Gastrointestinal: denies: abdominal pain, nausea, vomiting, diarrhea, constipation, hematemesis, melena Genitourinary: denies: urgency, dysuria Musculoskeletal: back pain Neurological: denies: headache, weakness, numbness, paresthesias, confusion ED Past Medical Hx - Past Medical History Previous Medical History?: Yes Hx Hypertension: (pt denies) Hx Heart Attack/AMI: No Hx Diabetes: Yes Hx GERD: Yes Hx Kidney Stones: No Additional medical history: NEUROPATHY, fibroids. CATARACT - Surgical History Past Surgical History?: Yes Hx Cholecystectomy: Yes Additional Surgical History: left fallopian tube removed at age 19 - Social History Smoking Status: Former Smoker Substance Use Type: Alcohol, Prescribed - Medications Home Medications: Home Medications Medication Instructions Recorded Confirmed Last Taken Type Insulin NPH/Regular [NovoLIN 70/30] 15 unit SUB-Q BID 10/14/15 12/26/16 19:30 History Famotidine [Pepcid] 20 mg PO QDAY #30 tablet 12/26/16 Unknown Rx Ondansetron [Zofran TAB] 4 mg PO Q8HR PRN #15 tablet 02/24/17 Unknown Rx Metoclopramide [Reglan TAB] 10 mg PO QID PRN #30 tablet 03/02/17 Unknown Rx Potassium Chloride [Klor-Con] 20 meq PO BID #20 packet 03/02/17 Unknown Rx Sucralfate [Carafate] 1 gm PO ONCE PRN #120 oral.liqd 03/02/17 Unknown Rx traMADol [Ultram 50 MG tab] 50 mg PO Q6HR PRN #10 tablet 03/24/17 Unknown Rx traMADol [Ultram 50 MG tab] 50 mg PO Q6HR PRN #14 tablet 05/01/17 Unknown Rx Dicyclomine [Bentyl] 10 mg PO QID PRN #20 capsule 05/05/17 Unknown Rx Ondansetron [Zofran TAB] 4 mg PO Q8HR PRN #15 tablet 05/05/17 Unknown Rx Metoclopramide [Reglan] 10 mg PO TID PRN #20 tab 08/21/17 Unknown Rx Dicyclomine [Bentyl] 10 mg PO QID #30 capsule 12/10/17 Unknown Rx Potassium Chloride [K-Dur] 20 meq PO QDAY #10 tablet 12/10/17 Unknown Rx Potassium Chloride [Klor-Con] 20 meq PO DAILY 10 Days #10 packet 12/14/17 Unknown Rx traMADol [Ultram 50 MG tab] 50 mg PO Q6HR PRN #15 tablet 12/14/17 Unknown Rx ED Physical Exam - General Limitations: No Limitations General appearance: alert, in no apparent distress - Head Head exam: Present: atraumatic, normocephalic, normal inspection - Eye Eye exam: Present: normal appearance - ENT ENT exam: Present: normal exam, normal orophraynx, mucous membranes moist - Neck Neck exam: Present: normal inspection, full ROM. Absent: tenderness, meningismus, lymphadenopathy, thyromegaly - Respiratory Respiratory exam: Present: normal lung sounds bilaterally. Absent: respiratory distress, wheezes, rales, rhonchi, stridor, decreased breath sounds, prolonged expiratory - Cardiovascular Cardiovascular Exam: Present: regular rate, normal rhythm, normal heart sounds - GI/Abdominal GI/Abdominal exam: Present: soft, normal bowel sounds. Absent: distended, tenderness, guarding, rebound, rigid, organomegaly, mass, bruit, pulsatile mass , hernia - Extremities Exam Extremities exam: Present: normal inspection, full ROM, normal capillary refill. Absent: pedal edema, joint swelling, calf tenderness - Back Exam Back exam: Present: normal inspection, full ROM. Absent: tenderness, CVA tenderness (R), CVA tenderness (L) - Neurological Exam Neurological exam: Present: alert, oriented X3, CN II-XII intact, normal gait, reflexes normal - Skin Skin exam: Present: warm, intact, normal color ED Course Vital Signs 01/24/18 01/24/18 07:45 13:54 Temperature 98.3 F Pulse Rate 84 80 Respiratory 18 17 Rate Blood Pressure 174/98 Blood Pressure 162/82 [Left] O2 Sat by Pulse 99 Oximetry ED Medical Decision Making - Lab Data Result diagrams: 01/24/18 12:09 01/24/18 16:15 - Medical Decision Making Patient stated that she is feeling better. Hypokalemia corrected. I advised patient to follow-up with her primary care physician and to follow-up with her pain management clinic. Critical care attestation.: If time is entered above; I have spent that time in minutes in the direct care of this critically ill patient, excluding procedure time. ED Disposition Clinical Impression: Back pain, Hypokalemia Disposition: -01 TO HOME OR SELFCARE Is pt being admited?: No Condition: Stable Instructions: Hypokalemia (ED) Referrals: PRIMARY CARE, [Primary Care Provider] - 3-5 Days
[2018-01-24 12:16] LABS: Bilirubin,Urine NEG (Negative); Blood,Urine NEG (Negative); Color,Urine Amber (Yellow); Mucus,Urine 2+ /HPF
[2018-01-24 12:22] LABS: Amphetamine Screen,Urine PRESUMPTIVE NEGATIVE; Benzodiazepines Screen,Urine PRESUMPTIVE NEGATIVE; Cannabinoid Screen,Urine PRESUMPTIVE NEGATIVE; Cocaine Screen,Urine PRESUMPTIVE NEGATIVE; Methadone Screen,Urine PRESUMPTIVE NEGATIVE; Opiate Screen,Urine PRESUMPTIVE NEGATIVE
[2018-01-24 12:23] LABS: Basophils # (Auto) 0.1 K/mm3 (0.0-0.1); Basophils % (Auto) 1.9 % (0.0-1.8); Eosinophils % (Auto) 0.3 % (0.0-4.3); Hematocrit 36.9 % (30.3-42.9); Hemoglobin 12.8 gm/dl (10.1-14.3); Lymphocytes % (Auto) 40.8 % (13.4-35.0); Mean Corpuscular HGB Conc 35 % (30-34); Mean Corpuscular Hemoglobin 28 pg (28-32); Mean Corpuscular Volume 81 fl (79-97); Monocytes # (Auto) 0.4 K/mm3 (0.0-0.8); Monocytes % (Auto) 8.9 % (0.0-7.3); Platelet Count 258 K/mm3 (140-440); Red Blood Count 4.54 M/mm3 (3.65-5.03); Red Cell Distribution Width 13.2 % (13.2-15.2)
[2018-01-24 12:39] LABS: Alanine Aminotransferase 19 units/L (7-56); Albumin 4.1 g/dL (3.9-5); BUN/Creatinine Ratio 18; Blood Urea Nitrogen 9 mg/dL (7-17); Calcium 9.1 mg/dL (8.4-10.2); Hemolysis Index 9; Lipase 10 units/L (13-60)
[2018-01-24] MEDS ORDERED: K-DUR PO ONE (12:48)
[2018-01-24] MEDS ORDERED: ULTRAM PO ONE (13:21)
[2018-01-24] MEDS ORDERED: NACL 0.9% 250ML 250 ML ONE (13:25)
[2018-01-24] MEDS: KCL 10MEQ/100ML 10 MEQ/100 ML BAG IV SCH ×4 (13:54→18:49)
[2018-01-24] MEDS ORDERED: NACL 0.9% 100 ML ONE (14:28)
[2018-01-24] MEDS ORDERED: MORPHINE IV ONE (14:40)
[2018-01-24 17:03] LABS: BUN/Creatinine Ratio 23; Blood Urea Nitrogen 9 mg/dL (7-17); Calcium 8.8 mg/dL (8.4-10.2); Hemolysis Index 20
[2018-01-24] MEDS ORDERED: NACL 0.9% 500 ML 500 ML IV ONE (17:10)
[2018-01-24 18:46] VITALS: BP 170/74
== END 2018-01-24 19:32 | disposition home or self-care (01) ==
LOC: ED 07:37
DX: M54.9 Dorsalgia, unspecified (principal); E87.6 Hypokalemia; E11.9 Type 2 diabetes mellitus without complications; K21.9 Gastro-esophageal reflux disease without esophagitis; Z90.49 Acquired absence of other specified parts of digestive tract; Z87.891 Personal history of nicotine dependence; Z88.6 Allergy status to analgesic agent; Z79.4 Long term (current) use of insulin
CPT/HCPCS: 36415; 80048; 80053; 80307; 81001; 82962; 83690; 85025; 93005; 93010; 96365; 96375; 99283; J2270; J3480; J7040; J7050; 96361; 96366

== ENCOUNTER 2018-05-01 10:33 | Emergency (ER) | payer SELFPAY ==
[2018-05-01 12:41] VITALS: BP 185/101
[2018-05-01] MEDS ORDERED: ULTRAM ONE (17:32)
[2018-05-01] MEDS ORDERED: TORADOL ONE (17:32)
[2018-05-01] MEDS ORDERED: ULTRAM PO ONE (17:33)
[2018-05-01] MEDS ORDERED: TORADOL IM ONE (17:33)
--- NOTE | 2018-05-01 17:35 | Emergency Department Report ---
ED Back Pain/Injury HPI - General Chief Complaint: Back Pain/Injury Stated Complaint: BACK PAIN/VOMIT Time Seen by Provider: 05/01/18 16:23 Source: patient Limitations: No Limitations - History of Present Illness Initial Comments: This is a 52-year-old female nontoxic, well nourished in appearance, no acute signs of distress presents to the ED with c/o of acute on chronic lower back pain. Patient states has history of sciatica nerve pain which is similar symptoms as today. Patient states that pain radiates through to his bilateral lower extremity. Patient denies any trauma. Denies any bladder or bowel instability. Patient denies any urinary symptoms. Denies any fever, chills, nausea, vomiting, headache, stiff neck, chest pain or shortness of breath. Patient denies any numbness or tingling. Patient stated allergies to aspirin. PAtient stated that Tramadol helps her pain. Patient stated she ran out of her medications and wants refill. MD Complaint: back pain Similar Symptoms Previously: Yes Radiation: left leg, right leg Severity: mild Severity scale (0 -10): 8 Quality: aching Consistency: constant Improves With: immobilization, supine, sitting upright Worsens With: movement, walking Associated Symptoms: denies other symptoms. denies: confusion, weakness, chest pain, numbness, difficulty walking, cough, difficulty urinating, diaphoresis, incontinence, fever/chills, constipation, headaches, abdominal pain, loss of appetite, malaise, nausea/vomiting, rash, seizure, shortness of breath, syncope - Related Data Home Medications Medication Instructions Recorded Confirmed Last Taken Insulin NPH/Regular [NovoLIN 70/30] 15 unit SUB-Q BID 10/14/15 12/26/16 19:30 Previous Rx's Medication Instructions Recorded Last Taken Type Famotidine [Pepcid] 20 mg PO QDAY #30 tablet 12/26/16 Unknown Rx Ondansetron [Zofran TAB] 4 mg PO Q8HR PRN #15 tablet 02/24/17 Unknown Rx Metoclopramide [Reglan TAB] 10 mg PO QID PRN #30 tablet 03/02/17 Unknown Rx Potassium Chloride [Klor-Con] 20 meq PO BID #20 packet 03/02/17 Unknown Rx Sucralfate [Carafate] 1 gm PO ONCE PRN #120 oral.liqd 03/02/17 Unknown Rx traMADol [Ultram 50 MG tab] 50 mg PO Q6HR PRN #10 tablet 03/24/17 Unknown Rx traMADol [Ultram 50 MG tab] 50 mg PO Q6HR PRN #14 tablet 05/01/17 Unknown Rx Dicyclomine [Bentyl] 10 mg PO QID PRN #20 capsule 05/05/17 Unknown Rx Ondansetron [Zofran TAB] 4 mg PO Q8HR PRN #15 tablet 05/05/17 Unknown Rx Metoclopramide [Reglan] 10 mg PO TID PRN #20 tab 08/21/17 Unknown Rx Dicyclomine [Bentyl] 10 mg PO QID #30 capsule 12/10/17 Unknown Rx Potassium Chloride [K-Dur] 20 meq PO QDAY #10 tablet 12/10/17 Unknown Rx Potassium Chloride [Klor-Con] 20 meq PO DAILY 10 Days #10 packet 12/14/17 Unknown Rx traMADol [Ultram 50 MG tab] 50 mg PO Q6HR PRN #15 tablet 12/14/17 Unknown Rx Ondansetron [Zofran Odt] 4 mg PO Q8HR PRN #14 tab.rapdis 01/24/18 Unknown Rx traMADol [Ultram 50 MG tab] 50 mg PO Q4HR PRN #14 tablet 01/24/18 Unknown Rx Naproxen 500 mg PO Q8H PRN #30 tablet 05/01/18 Unknown Rx traMADol [Ultram 50 MG tab] 50 mg PO Q6HR PRN #6 tablet 05/01/18 Unknown Rx Allergies Allergy/AdvReac Type Severity Reaction Status Date / Time aspirin AdvReac Vomiting Verified 05/01/18 12:37 ED Review of Systems ROS: Stated complaint: BACK PAIN/VOMIT Other details as noted in HPI Constitutional: denies: chills, fever Eyes: denies: eye pain, eye discharge, vision change ENT: denies: ear pain, throat pain Respiratory: denies: cough, shortness of breath, wheezing Cardiovascular: denies: chest pain, palpitations Endocrine: no symptoms reported Gastrointestinal: denies: abdominal pain, nausea, diarrhea Genitourinary: denies: urgency, dysuria, discharge Musculoskeletal: back pain. denies: joint swelling, arthralgia Skin: denies: rash, lesions Neurological: denies: headache, weakness, paresthesias Psychiatric: denies: anxiety, depression Hematological/Lymphatic: denies: easy bleeding, easy bruising ED Past Medical Hx - Past Medical History Hx Hypertension: (pt denies) Hx Heart Attack/AMI: No Hx Diabetes: Yes Hx GERD: Yes Hx Kidney Stones: No Additional medical history: NEUROPATHY, fibroids. CATARACT - Surgical History Hx Cholecystectomy: Yes Additional Surgical History: left fallopian tube removed at age 19 - Social History Smoking Status: Never Smoker Substance Use Type: None - Medications Home Medications: Home Medications Medication Instructions Recorded Confirmed Last Taken Type Insulin NPH/Regular [NovoLIN 70/30] 15 unit SUB-Q BID 10/14/15 12/26/16 19:30 History Famotidine [Pepcid] 20 mg PO QDAY #30 tablet 12/26/16 Unknown Rx Ondansetron [Zofran TAB] 4 mg PO Q8HR PRN #15 tablet 02/24/17 Unknown Rx Metoclopramide [Reglan TAB] 10 mg PO QID PRN #30 tablet 03/02/17 Unknown Rx Potassium Chloride [Klor-Con] 20 meq PO BID #20 packet 03/02/17 Unknown Rx Sucralfate [Carafate] 1 gm PO ONCE PRN #120 oral.liqd 03/02/17 Unknown Rx traMADol [Ultram 50 MG tab] 50 mg PO Q6HR PRN #10 tablet 03/24/17 Unknown Rx traMADol [Ultram 50 MG tab] 50 mg PO Q6HR PRN #14 tablet 05/01/17 Unknown Rx Dicyclomine [Bentyl] 10 mg PO QID PRN #20 capsule 05/05/17 Unknown Rx Ondansetron [Zofran TAB] 4 mg PO Q8HR PRN #15 tablet 05/05/17 Unknown Rx Metoclopramide [Reglan] 10 mg PO TID PRN #20 tab 08/21/17 Unknown Rx Dicyclomine [Bentyl] 10 mg PO QID #30 capsule 12/10/17 Unknown Rx Potassium Chloride [K-Dur] 20 meq PO QDAY #10 tablet 12/10/17 Unknown Rx Potassium Chloride [Klor-Con] 20 meq PO DAILY 10 Days #10 packet 12/14/17 Unknown Rx traMADol [Ultram 50 MG tab] 50 mg PO Q6HR PRN #15 tablet 12/14/17 Unknown Rx Ondansetron [Zofran Odt] 4 mg PO Q8HR PRN #14 tab.rapdis 01/24/18 Unknown Rx traMADol [Ultram 50 MG tab] 50 mg PO Q4HR PRN #14 tablet 01/24/18 Unknown Rx Naproxen 500 mg PO Q8H PRN #30 tablet 05/01/18 Unknown Rx traMADol [Ultram 50 MG tab] 50 mg PO Q6HR PRN #6 tablet 05/01/18 Unknown Rx ED Physical Exam - General Limitations: No Limitations General appearance: alert, in no apparent distress - Head Head exam: Present: atraumatic, normocephalic - Eye Eye exam: Present: normal appearance Pupils: Present: normal accommodation - ENT ENT exam: Present: normal exam, mucous membranes moist - Neck Neck exam: Present: normal inspection, full ROM. Absent: tenderness, meningismus, lymphadenopathy - Respiratory Respiratory exam: Present: normal lung sounds bilaterally. Absent: respiratory distress, wheezes, rales, rhonchi, stridor, chest wall tenderness, accessory muscle use, decreased breath sounds, prolonged expiratory - Cardiovascular Cardiovascular Exam: Present: regular rate, normal rhythm, normal heart sounds. Absent: irregular rhythm, systolic murmur, diastolic murmur, rubs, gallop - GI/Abdominal GI/Abdominal exam: Present: soft, normal bowel sounds. Absent: distended, tenderness, guarding, rebound, rigid, diminished bowel sounds - Extremities Exam Extremities exam: Present: normal inspection, full ROM, normal capillary refill. Absent: tenderness - Back Exam Back exam: Present: normal inspection, full ROM, paraspinal tenderness (lumbar paraspinal). Absent: tenderness, CVA tenderness (R), CVA tenderness (L), muscle spasm, vertebral tenderness, rash noted - Expanded Back Exam Expanded Back exam: Absent: saddle anesthesia Back exam: Negative Straight Leg Raising: Left, Right - Neurological Exam Neurological exam: Present: alert, oriented X3, normal gait - Psychiatric Psychiatric exam: Present: normal affect, normal mood - Skin Skin exam: Present: warm, dry, intact, normal color. Absent: rash ED Course Vital Signs 05/01/18 05/01/18 12:38 17:27 Temperature 100.1 F H 98.1 F Pulse Rate 84 87 Respiratory 16 20 Rate Blood Pressure 185/101 O2 Sat by Pulse 99 100 Oximetry - Reevaluation(s) Reevaluation #1: 05/01/18 17:35 Patient is speaking in full sentences with no signs of distress noted. ED Medical Decision Making - Medical Decision Making This is a 52-year-old female that presents with low back strain. Patient is stable was examined by me. There is no spinal tenderness. There is no cauda equina syndrome during examination. No bladder or bowel instability. Patient received Toradol 30 mg IM and Tramadol in the ED which patient stated that symptoms has resolved and subsided. PAtient stated a family member will drive the patient home after discahrge. I will refill a short course of Tramadol until she can get a PCP follow-up. Patient is discharged with Tramadol and Naproxen. Patient was instructed not to operate any machinery while taking Tramadol as they cause her drowsiness. Patient was referred to Follow-up with a primary care doctor in 3-5 days or if symptoms worsen and continue return to emergency room as soon as possible. At time of discharge, the patient does not seem toxic or ill in appearance. No acute signs of distress noted. Patient agrees to discharge treatment plan of care. No further questions noted by the patient. This chart is dictated with using [employer] Critical care attestation.: If time is entered above; I have spent that time in minutes in the direct care of this critically ill patient, excluding procedure time. ED Disposition Clinical Impression: Chronic low back pain Qualifiers: Back pain laterality: bilateral Sciatica presence: with sciatica Sciatica laterality: bilateral sciatica Qualified Code(s): M54.42 - Lumbago with sciatica , left side; M54.41 - Lumbago with sciatica, right side; G89.29 - Other chronic pain Disposition: DC-01 TO HOME OR SELFCARE Is pt being admited?: No Does the pt Need Aspirin: No Condition: Stable Instructions: Chronic Back Pain (ED), Tramadol (By mouth) Additional Instructions: Follow-up with a primary care doctor in 3-5 days or if symptoms worsen and continue return to emergency room as soon as possible. Do not operate any machinery while taking tramadol as this may cause drowsiness. Prescriptions: Naproxen 500 mg PO Q8H PRN #30 tablet PRN Reason: Pain, Moderate (4-6) traMADol [Ultram 50 MG tab] 50 mg PO Q6HR PRN #6 tablet PRN Reason: Pain Referrals: PRIMARY CAREMD [Primary Care Provider] - 3-5 Days MONTY OLMSTEAD MD [Staff Physician] - 3-5 Days [facility] [Outside] - 3-[address] [facility] [Outside] - 3-5 Days Forms: Work/School Release Form(ED)
== END 2018-05-01 17:50 | disposition home or self-care (01) ==
LOC: ED 10:33
DX: M54.42 Lumbago with sciatica, left side (principal); M54.41 Lumbago with sciatica, right side; G89.29 Other chronic pain; E11.40 Type 2 diabetes mellitus with diabetic neuropathy, unspecified; K21.9 Gastro-esophageal reflux disease without esophagitis; Z90.49 Acquired absence of other specified parts of digestive tract; Z90.79 Acquired absence of other genital organ(s); Z88.6 Allergy status to analgesic agent; Z79.899 Other long term (current) drug therapy
CPT/HCPCS: 96372; 99282; J1885

== ENCOUNTER 2018-06-01 14:08 | Emergency (ER) | payer OTHER ==
[2018-06-01] MEDS ORDERED: ASPIRIN PO ONE (14:20)
[2018-06-01 15:06] LABS: Basophils % (Auto) 0.3 % (0.0-1.8); Eosinophils # (Auto) 0.1 K/mm3 (0.0-0.4); Eosinophils % (Auto) 1.5 % (0.0-4.3); Hematocrit 34.2 % (30.3-42.9); Hemoglobin 12.2 gm/dl (10.1-14.3); Lymphocytes # (Auto) 2.3 K/mm3 (1.2-5.4); Mean Corpuscular HGB Conc 36 % (30-34); Mean Corpuscular Hemoglobin 29 pg (28-32); Mean Corpuscular Volume 80 fl (79-97); Monocytes # (Auto) 0.5 K/mm3 (0.0-0.8); Monocytes % (Auto) 9.2 % (0.0-7.3); Platelet Count 303 K/mm3 (140-440); Red Blood Count 4.26 M/mm3 (3.65-5.03); Red Cell Distribution Width 12.9 % (13.2-15.2)
[2018-06-01 15:24] LABS: BUN/Creatinine Ratio 19; Blood Urea Nitrogen 13 mg/dL (7-17); Calcium 9.1 mg/dL (8.4-10.2); Hemolysis Index 0
--- NOTE | 2018-06-01 15:37 | Emergency Department Report ---
Blank Doc - Documentation Documentation: 53 yo female with epigastric pain radiating upward into the back 2 days. Patient reports tightness in her chest. Reports associated nausea, vomiting, shortness of breath. Blood pressure elevated at 168/100. Patient is calm and appears slightly uncomfortable. Pt has epigastric tenderness on exam. EKG shows no acute changes. Will check labs and also obtain CTA of the chest.
[2018-06-01] MEDS ORDERED: ALUM-MAG HYDROX-SIMETH 200-200-20MG/5ML PO ONE (15:52)
[2018-06-01] MEDS ORDERED: LIDOCAINE VISCOUS 2% PO ONE (15:52)
[2018-06-01] MEDS ORDERED: K-DUR PO ONE (16:14)
--- NOTE | 2018-06-01 17:17 | Cat Scan Report ---
FINAL REPORT PROCEDURE: CT ANGIO CHEST TECHNIQUE: Computerized tomographic angiography of the chest was performed during the IV injection of iodinated nonionic contrast including image processing. The image data was postprocessed using 2-dimensional multiplanar reformatted (MPR) and 3-dimensional (MIP and/or volume rendered) techniques. HISTORY: chest pain COMPARISON: No prior studies are available for comparison. FINDINGS: Pulmonary outflow tract, right and left main pulmonary arteries and their proximal branches: Clear, no filling defects seen to suggest pulmonary embolus. Pericardium: No evidence of pericardial effusion. Thoracic aorta: No evidence of aneurysmal dilatation. Coronary arteries: Are unremarkable. Mediastinum and hilar regions: Nonspecific subcentimeter lymph nodes are visualized. No pathologically enlarged lymph nodes or masses are identified. Lung Caraballo: Minimal dependent atelectasis visualized on the left. Lung caraballo otherwise are clear. Upper abdomen: Gallbladder is surgically absent. No acute abnormalities are seen in the upper abdomen. Other: No acute bony abnormalities are seen. IMPRESSION: No evidence of pulmonary embolus. Prior cholecystectomy. No other abnormalities are seen.
[2018-06-01 17:30] LABS: Alanine Aminotransferase 12 units/L (7-56); Albumin 4.2 g/dL (3.9-5); Lipase 16 units/L (13-60)
[2018-06-01 17:36] LABS: Bilirubin,Direct < 0.2 mg/dL (0-0.2)
--- NOTE | 2018-06-01 18:33 | Emergency Department Report ---
ED Chest Pain HPI - General Chief Complaint: Chest Pain Stated Complaint: CHEST PAIN/VOMITING Time Seen by Provider: 06/01/18 15:18 Source: patient Mode of arrival: Ambulatory Limitations: No Limitations - History of Present Illness Initial Comments: 53 yo female with epigastric pain radiating upward and into the back 2 days. Patient reports tightness in her chest. Reports associated nausea, vomiting, shortness of breath. Pt states thinks pain may be "GI-related." Pt also reports cough for several days, productive of greenish sputum. Also reports hx of chronic back pain. -: days(s) (2) Onset: during rest Pain Location: epigastric Pain Radiation: back Severity: moderate Quality: tightness Consistency: intermittent Improves With: nothing Worsens With: nothing re: nausea, vomting Other Symptoms: cough. denies: fever, leg swelling - Related Data Home Medications Medication Instructions Recorded Confirmed Last Taken Insulin NPH/Regular [NovoLIN 70/30] 15 unit SUB-Q BID 10/14/15 12/26/16 19:30 Previous Rx's Medication Instructions Recorded Last Taken Type Famotidine [Pepcid] 20 mg PO QDAY #30 tablet 12/26/16 Unknown Rx Ondansetron [Zofran TAB] 4 mg PO Q8HR PRN #15 tablet 02/24/17 Unknown Rx Metoclopramide [Reglan TAB] 10 mg PO QID PRN #30 tablet 03/02/17 Unknown Rx Potassium Chloride [Klor-Con] 20 meq PO BID #20 packet 03/02/17 Unknown Rx Sucralfate [Carafate] 1 gm PO ONCE PRN #120 oral.liqd 03/02/17 Unknown Rx traMADol [Ultram 50 MG tab] 50 mg PO Q6HR PRN #10 tablet 03/24/17 Unknown Rx traMADol [Ultram 50 MG tab] 50 mg PO Q6HR PRN #14 tablet 05/01/17 Unknown Rx Dicyclomine [Bentyl] 10 mg PO QID PRN #20 capsule 05/05/17 Unknown Rx Ondansetron [Zofran TAB] 4 mg PO Q8HR PRN #15 tablet 05/05/17 Unknown Rx Metoclopramide [Reglan] 10 mg PO TID PRN #20 tab 08/21/17 Unknown Rx Dicyclomine [Bentyl] 10 mg PO QID #30 capsule 12/10/17 Unknown Rx Potassium Chloride [K-Dur] 20 meq PO QDAY #10 tablet 12/10/17 Unknown Rx Potassium Chloride [Klor-Con] 20 meq PO DAILY 10 Days #10 packet 12/14/17 Unknown Rx traMADol [Ultram 50 MG tab] 50 mg PO Q6HR PRN #15 tablet 12/14/17 Unknown Rx Ondansetron [Zofran Odt] 4 mg PO Q8HR PRN #14 tab.rapdis 01/24/18 Unknown Rx traMADol [Ultram 50 MG tab] 50 mg PO Q4HR PRN #14 tablet 01/24/18 Unknown Rx Naproxen 500 mg PO Q8H PRN #30 tablet 05/01/18 Unknown Rx traMADol [Ultram 50 MG tab] 50 mg PO Q6HR PRN #6 tablet 05/01/18 Unknown Rx Dicyclomine [Bentyl] 20 mg PO QID PRN #20 tablet 06/01/18 Unknown Rx Esomeprazole Magnesium [Nexium] 40 mg PO DAILY #30 capsule.dr 06/01/18 Unknown Rx Promethazine [Phenergan TAB] 25 mg PO Q6HR PRN #20 tab 06/01/18 Unknown Rx Allergies Allergy/AdvReac Type Severity Reaction Status Date / Time aspirin AdvReac Vomiting Verified 05/01/18 12:37 Heart Score - HEART Score History: Slightly suspicious EKG: Normal Age: 45-65 Risk factors: 1-2 risk factors Troponin: < normal limit HEART Score: 2 - Critical Actions Critical Actions: 0-3 pts:0.9-1.7%risk of adverse cardiac event.Candidate for discharge ED Review of Systems ROS: Stated complaint: CHEST PAIN/VOMITING Other details as noted in HPI Comment: All other systems reviewed and negative Constitutional: denies: chills, fever Respiratory: cough. denies: shortness of breath Cardiovascular: chest pain Gastrointestinal: abdominal pain, nausea, vomiting Musculoskeletal: back pain ED Past Medical Hx - Past Medical History Hx Hypertension: (pt denies) Hx Heart Attack/AMI: No Hx Diabetes: Yes Hx GERD: Yes Hx Kidney Stones: No Additional medical history: NEUROPATHY, fibroids. CATARACT - Surgical History Hx Cholecystectomy: Yes Additional Surgical History: left fallopian tube removed at age 19 - Social History Smoking Status: Former Smoker Substance Use Type: None - Medications Home Medications: Home Medications Medication Instructions Recorded Confirmed Last Taken Type Insulin NPH/Regular [NovoLIN 70/30] 15 unit SUB-Q BID 10/14/15 12/26/16 19:30 History Famotidine [Pepcid] 20 mg PO QDAY #30 tablet 12/26/16 Unknown Rx Ondansetron [Zofran TAB] 4 mg PO Q8HR PRN #15 tablet 02/24/17 Unknown Rx Metoclopramide [Reglan TAB] 10 mg PO QID PRN #30 tablet 03/02/17 Unknown Rx Potassium Chloride [Klor-Con] 20 meq PO BID #20 packet 03/02/17 Unknown Rx Sucralfate [Carafate] 1 gm PO ONCE PRN #120 oral.liqd 03/02/17 Unknown Rx traMADol [Ultram 50 MG tab] 50 mg PO Q6HR PRN #10 tablet 03/24/17 Unknown Rx traMADol [Ultram 50 MG tab] 50 mg PO Q6HR PRN #14 tablet 05/01/17 Unknown Rx Dicyclomine [Bentyl] 10 mg PO QID PRN #20 capsule 05/05/17 Unknown Rx Ondansetron [Zofran TAB] 4 mg PO Q8HR PRN #15 tablet 05/05/17 Unknown Rx Metoclopramide [Reglan] 10 mg PO TID PRN #20 tab 08/21/17 Unknown Rx Dicyclomine [Bentyl] 10 mg PO QID #30 capsule 12/10/17 Unknown Rx Potassium Chloride [K-Dur] 20 meq PO QDAY #10 tablet 12/10/17 Unknown Rx Potassium Chloride [Klor-Con] 20 meq PO DAILY 10 Days #10 packet 12/14/17 Unknown Rx traMADol [Ultram 50 MG tab] 50 mg PO Q6HR PRN #15 tablet 12/14/17 Unknown Rx Ondansetron [Zofran Odt] 4 mg PO Q8HR PRN #14 tab.rapdis 01/24/18 Unknown Rx traMADol [Ultram 50 MG tab] 50 mg PO Q4HR PRN #14 tablet 01/24/18 Unknown Rx Naproxen 500 mg PO Q8H PRN #30 tablet 05/01/18 Unknown Rx traMADol [Ultram 50 MG tab] 50 mg PO Q6HR PRN #6 tablet 05/01/18 Unknown Rx Dicyclomine [Bentyl] 20 mg PO QID PRN #20 tablet 06/01/18 Unknown Rx Esomeprazole Magnesium [Nexium] 40 mg PO DAILY #30 capsule. 06/01/18 Unknown Rx Promethazine [Phenergan TAB] 25 mg PO Q6HR PRN #20 tab 06/01/18 Unknown Rx ED Physical Exam - General Limitations: No Limitations General appearance: alert, in no apparent distress - Head Head exam: Present: atraumatic, normocephalic - Eye Eye exam: Present: normal appearance - ENT ENT exam: Present: mucous membranes moist - Neck Neck exam: Present: normal inspection - Respiratory Respiratory exam: Present: normal lung sounds bilaterally, chest wall tenderness. Absent: respiratory distress - Cardiovascular Cardiovascular Exam: Present: regular rate, normal rhythm - GI/Abdominal GI/Abdominal exam: Present: soft, tenderness (epigastric) - Extremities Exam Extremities exam: Present: normal inspection. Absent: pedal edema, calf tenderness - Neurological Exam Neurological exam: Present: alert, oriented X3 - Psychiatric Psychiatric exam: Present: normal affect, normal mood - Skin Skin exam: Present: warm, dry, intact, normal color. Absent: rash ED Course Vital Signs 06/01/18 06/01/18 06/01/18 14:11 15:30 16:04 Temperature 98.1 F Pulse Rate 75 77 Respiratory 22 18 17 Rate Blood Pressure 168/100 O2 Sat by Pulse 98 99 Oximetry ED Medical Decision Making - Lab Data Result diagrams: 06/01/18 14:38 06/01/18 14:38 - EKG Data -: EKG Interpreted by Ca EKG shows normal: sinus rhythm, axis, intervals, QRS complexes, ST-T waves Rate: normal - EKG Data Interpretation: no acute changes - Radiology Data Radiology results: report reviewed CTA Negative for PE or aortic dissection. Normal steady - Medical Decision Making 53-year-old female with epigastric chest pain radiating up into the substernal chest sounds are reporting back pain as well. Patient reports productive cough for the last few days. Patient given GI cocktail and states that that helped to relieve her pain. EKG unremarkable with normal troponins 2. CTA of the chest was performed due to patient reporting pain radiating into her back. This was negative for dissection and PE. No other findings were noted. Pain possibly related to GERD. Also possibly due to chest wall pain from productive cough that was reported. Will discharge at this time patient given return precautions and advised to follow-up with PCP. - Differential Diagnosis PE, ACS, dissection, GERD, pneumonia Critical care attestation.: If time is entered above; I have spent that time in minutes in the direct care of this critically ill patient, excluding procedure time. ED Disposition Clinical Impression: Gastritis Disposition: DC- TO HOME OR SELFCARE Is pt being admited?: No Condition: Stable Instructions: Gastritis (ED), Diet for Ulcers and Gastritis (ED) Prescriptions: Dicyclomine [Bentyl] 20 mg PO QID PRN #20 tablet PRN Reason: abdominal pain Esomeprazole Magnesium [Nexium] 40 mg PO DAILY #30 capsule. Promethazine [Phenergan TAB] 25 mg PO Q6HR PRN #20 tab PRN Reason: Nausea Referrals: PRIMARY CARE, [Primary Care Provider] - 3-5 Days [facility] [Provider Group] - 3-5 Days [facility] [Provider Group] - 3-5 Days Time of Disposition: 18:38
[2018-06-01] MEDS ORDERED: TYLENOL #3 ONE (18:47)
[2018-06-01] MEDS ORDERED: TRIPLE ANTIBIOTIC TP ONE (18:48)
[2018-06-01] MEDS ORDERED: TYLENOL #3 PO ONE (18:51)
[2018-06-01 19:05] VITALS: BP 128/68
--- NOTE | 2018-06-01 20:10 | XRay Report ---
FINAL REPORT PROCEDURE: PA and lateral chest x-ray TECHNIQUE: PA and lateral views of the chest were obtained. HISTORY: chest pain COMPARISON: No prior studies are available for comparison. FINDINGS: Heart size upper normal. The pulmonary vasculature appears normal. No evidence of pulmonary edema pleural effusion infiltrate or mass. Mild thoracic scoliosis convex the left visualized. No acute bony abnormalities are identified. Surgical clips seen in the upper abdomen. IMPRESSION: Heart size upper normal. Mild thoracic scoliosis. No acute abnormalities are seen.
== END 2018-06-01 19:02 | disposition home or self-care (01) ==
LOC: ED 14:08
DX: K29.70 Gastritis, unspecified, without bleeding (principal); R06.02 Shortness of breath; E11.9 Type 2 diabetes mellitus without complications; K21.9 Gastro-esophageal reflux disease without esophagitis; Z90.49 Acquired absence of other specified parts of digestive tract; Z87.891 Personal history of nicotine dependence; Z90.79 Acquired absence of other genital organ(s); Z88.6 Allergy status to analgesic agent; Z79.4 Long term (current) use of insulin
CPT/HCPCS: 36415; 71046; 71275; 80048; 80074; 83690; 84484; 85025; 93005; 93010; 99285; Q9967; A6250